=== PATIENT | male | born 1970 | race Two or more races ===

== ENCOUNTER 2024-01-07 15:30 | Inpatient (IN) | payer OTHER ==
[~2024-01-07] VITALS: Ht 170.2 cm; Wt 133.3 kg
[2024-01-07 17:34] LABS: BASOPHILS % (AUTO) 0.8 % (0.0-2.0); EOSINOPHILS % (AUTO) 4.3 % (1.0-6.0); HEMATOCRIT 42.1 % (41-53); HEMOGLOBIN 13.4 g/dL (13.5-17.5); LYMPHOCYTES # (AUTO) 2.4 K/uL (1.0-4.8); LYMPHOCYTES % (AUTO) 19.9 % (22.0-44.0); MEAN CORPUSCULAR HEMOGLOBIN 26.8 pg (26.0-34.0); MEAN CORPUSCULAR HGB CONC 31.7 G/dL (31.0-37.0); MEAN CORPUSCULAR VOLUME 85 fL (80-100); MONOCYTES # (AUTO) 0.8 K/uL (0.1-1.0); MONOCYTES % (AUTO) 6.3 % (2.0-9.0); NEUTROPHILS # (AUTO) 8.3 K/uL (1.8-7.7); NEUTROPHILS % (AUTO) 68.7 % (40.0-70.0); PLATELET COUNT (AUTO) 386 K/uL (150-450); RED BLOOD CELL COUNT(AUTO) 4.98 MIL/uL (4.50-5.90); RED CELL DISTRIBUTION WIDTH 15.4 % (11.5-14.5)
[2024-01-07] MEDS: MethylPREDNISolone SOD SUCC 125 MG/2 ML VIAL IVP ONE (17:45)
[2024-01-07 17:49] LABS: ANION GAP 12 mmol/L (8-16); CALCIUM, TOTAL 8.5 mg/dL (8.8-10.5); CARBON DIOXIDE 25 mmol/L (22-29); CHLORIDE 104 mmol/L (98-107); CREATININE 0.81 mg/dL (0.60-1.30); GLOMERULAR FILTR. RATE CALC > 60 mL/min (>60); GLUCOSE,RANDOM 79 mg/dL (70-110); POTASSIUM 3.8 mmol/L (3.5-5.1); SODIUM SERUM 141 mmol/L (136-145); UREA NITROGEN, BLOOD 10 mg/dL (7-18)
[2024-01-07 17:54] LABS: B-TYPE NATRIURETIC PEPTIDE 16 pg/mL (0-100)
[2024-01-07 17:57] LABS: TROPONIN I-HIGH SENSITIVITY 26 ng/L (<76)
[2024-01-07] MEDS ORDERED: IOHEXOL 350 MG/ML 100 ML VIAL ONE (18:28)
[2024-01-07] MEDS ORDERED: SODIUM CHLORIDE 0.9% 100 ML ONE (18:28)
[2024-01-07] MEDS ORDERED: 0.9% SODIUM CHLORIDE 10 ML SYRINGE IVP ONE (18:28)
[2024-01-07] MEDS: IPRATROPIUM BROMIDE 0.5 MG/2.5 ML NEB SOLUTION NEB ONE (20:35)
[2024-01-07] MEDS: ALBUTEROL SULFATE 2.5 MG/0.5 ML NEB SOLUTION NEB ONE (20:35)
[2024-01-07 20:39] VITALS: PULSE 89; RESP 18; O2SAT 94
[2024-01-07 20:40] VITALS: PULSE 89; RESP 18; O2SAT 94
[2024-01-07] MEDS ORDERED: ALBUTEROL SULFATE 2.5 MG/0.5 ML NEB SOLUTION NEB PRN (22:00)
[2024-01-07] MEDS ORDERED: ACETAMINOPHEN 325 MG TABLET PO PRN (22:00)
[2024-01-07] MEDS ORDERED: MORPHINE SULFATE 2 MG/ML SYRINGE IVP PRN (22:00)
[2024-01-07] MEDS ORDERED: HYDROCODONE/ACETAMINOPHEN 5-325 MG TABLET PO PRN (22:00)
[2024-01-07] MEDS ORDERED: BISACODYL 10 MG RECTAL RECTAL SUPPOSITORY PR PRN (22:00)
[2024-01-07] MEDS ORDERED: ZOLPIDEM TARTRATE 5 MG TABLET PO PRN (22:00)
[2024-01-07] MEDS ORDERED: IPRATROPIUM BROMIDE 0.5 MG/2.5 ML NEB SOLUTION NEB PRN (22:00)
[2024-01-07] MEDS ORDERED: ONDANSETRON HCL 4 MG/2 ML VIAL IVP PRN (22:00)
[2024-01-07] MEDS ORDERED: MAGNESIUM HYDROXIDE SUSPENSION 30 ML UDCUP PO PRN (22:00)
[2024-01-07] MEDS: CefTRIAXone 1 GM/DEXTROSE 50 ML IV SCH (22:15)
[2024-01-07] MEDS ORDERED: ROSU10TA72 PO (22:30)
[2024-01-07] MEDS ORDERED: LEVAHFA IH (22:30)
[2024-01-07] MEDS ORDERED: LISI-892 PO (22:30)
[2024-01-07] MEDS ORDERED: ALBU2.5V39 NEB (22:30)
[2024-01-07] MEDS ORDERED: TIOT185 IH (22:30)
[2024-01-07] MEDS ORDERED: CHOL200059 PO (22:30)
[2024-01-07] MEDS ORDERED: PRED-554 PO (22:30)
[2024-01-07] MEDS ORDERED: LEVO150 PO (22:30)
[2024-01-07] MEDS ORDERED: CAPS60CR3 TP (22:30)
[2024-01-07] MEDS ORDERED: FORM20VI2 NEB (22:30)
[2024-01-07] MEDS ORDERED: CETI-450 PO (22:30)
[2024-01-07] MEDS ORDERED: GABA-1181 PO (22:30)
[2024-01-07] MEDS ORDERED: INSLAN SQ (22:30)
[2024-01-07] MEDS ORDERED: CYAN500T56 PO (22:30)
[2024-01-07] MEDS: AZITHROMYCIN 500 MG/NS 250 ML IV SCH (22:54)
[2024-01-07] MEDS: HEPARIN SODIUM,PORCINE 5,000 UNITS/ML VIAL SQ SCH (23:24)
[2024-01-07] MEDS: MethylPREDNISolone SOD SUCC 125 MG/2 ML VIAL IVP SCH (23:24)
[2024-01-08] VITALS (11 sets, daily range): BP systolic 103–123; BP diastolic 61–76; PULSE 76–92; RESP 18–22; TEMP 97.9–98.1; O2SAT 87–99
[2024-01-08] MEDS: ALBUTEROL SULFATE 2.5 MG/0.5 ML NEB SOLUTION NEB SCH (01:26)
[2024-01-08] MEDS: IPRATROPIUM BROMIDE 0.5 MG/2.5 ML NEB SOLUTION NEB SCH (01:26)
[2024-01-08] MEDS ORDERED: GLUCAGON,HUMAN RECOMBINANT 1 MG VIAL IM PRN (08:00)
[2024-01-08] MEDS: DOCUSATE SODIUM 100 MG CAPSULE PO SCH (08:10)
[2024-01-08] MEDS: BENZONATATE 100 MG CAPSULE PO SCH (08:10)
[2024-01-08] MEDS: PANTOPRAZOLE SODIUM 40 MG DR TABLET PO SCH (08:10)
[2024-01-08 08:12] LABS: COVID AG,FIA SOURCE NASAL SWAB
[2024-01-08] MEDS: INSULIN GLARGINE,HUM.REC.ANLOG 100 UNITS/ML SQ SCH (08:12)
[2024-01-08 08:32] LABS: SARS-COV2 (COVID) ANTIGEN,FIA Negative (Negative)
[2024-01-08] MEDS: GuaiFENesin SR 600 MG ER TABLET PO SCH (11:25)
[2024-01-08] MEDS: INSULIN LISPRO 100 UNITS/ML SQ PRN (11:26)
[2024-01-08 11:46] LABS: BASOPHILS % (AUTO) 0.2 % (0.0-2.0); EOSINOPHILS % (AUTO) 0 % (1.0-6.0); HEMATOCRIT 43.1 % (41-53); HEMOGLOBIN 13.8 g/dL (13.5-17.5); LYMPHOCYTES # (AUTO) 1.1 K/uL (1.0-4.8); LYMPHOCYTES % (AUTO) 4.9 % (22.0-44.0); MEAN CORPUSCULAR HEMOGLOBIN 26.8 pg (26.0-34.0); MEAN CORPUSCULAR HGB CONC 31.9 G/dL (31.0-37.0); MEAN CORPUSCULAR VOLUME 84 fL (80-100); MONOCYTES # (AUTO) 0.4 K/uL (0.1-1.0); MONOCYTES % (AUTO) 1.8 % (2.0-9.0); NEUTROPHILS # (AUTO) 20.1 K/uL (1.8-7.7); PLATELET COUNT (AUTO) 413 K/uL (150-450); RED BLOOD CELL COUNT(AUTO) 5.14 MIL/uL (4.50-5.90); RED CELL DISTRIBUTION WIDTH 15.4 % (11.5-14.5); WHITE BLOOD COUNT (AUTO) 21.6 K/uL (4.5-11.0)
[2024-01-08 11:58] LABS: NEUTROPHILS % (AUTO) 93.1 % (40.0-70.0)
[2024-01-08 12:29] LABS: ANION GAP 13 mmol/L (8-16); CARBON DIOXIDE 23 mmol/L (22-29); CHLORIDE 103 mmol/L (98-107); GLOMERULAR FILTR. RATE CALC > 60 mL/min (>60); GLUCOSE,RANDOM 231 mg/dL (70-110); POTASSIUM 3.9 mmol/L (3.5-5.1); SODIUM SERUM 139 mmol/L (136-145); UREA NITROGEN, BLOOD 9 mg/dL (7-18)
[2024-01-08] MEDS ORDERED: 0.9% SODIUM CHLORIDE 5 ML NEB SOLUTION NEB ONE (14:00)
[2024-01-08 20:26] LABS: GLUCOMETER DEV NAME(LOC) 5S.1C; GLUCOSE,POINT OF CARE 241 MG/DL (70-110)
[2024-01-08 20:26] LABS: GLUCOMETER DEV NAME(LOC) 5S.1C; GLUCOSE,POINT OF CARE 208 MG/DL (70-110)
[2024-01-09] VITALS (12 sets, daily range): BP systolic 111–130; BP diastolic 65–76; PULSE 59–93; RESP 18–20; TEMP 97.9–98.3; O2SAT 91–97
[2024-01-09 00:55] LABS: GLUCOMETER DEV NAME(LOC) 5S.2D; GLUCOSE,POINT OF CARE 290 MG/DL (70-110)
[2024-01-09 06:25] LABS: GLUCOMETER DEV NAME(LOC) 5S.2D; GLUCOSE,POINT OF CARE 217 MG/DL (70-110)
[2024-01-09 07:18] LABS: ANION GAP 13 mmol/L (8-16); CALCIUM, TOTAL 8.6 mg/dL (8.8-10.5); CARBON DIOXIDE 21 mmol/L (22-29); CHLORIDE 105 mmol/L (98-107); CREATININE 0.95 mg/dL (0.60-1.30); GLOMERULAR FILTR. RATE CALC > 60 mL/min (>60); GLUCOSE,RANDOM 217 mg/dL (70-110); POTASSIUM 3.8 mmol/L (3.5-5.1); SODIUM SERUM 139 mmol/L (136-145); UREA NITROGEN, BLOOD 11 mg/dL (7-18)
[2024-01-09 07:45] LABS: BASOPHILS % (AUTO) 0.6 % (0.0-2.0); EOSINOPHILS % (AUTO) 0 % (1.0-6.0); HEMATOCRIT 42.4 % (41-53); HEMOGLOBIN 13.4 g/dL (13.5-17.5); LYMPHOCYTES # (AUTO) 1.2 K/uL (1.0-4.8); MEAN CORPUSCULAR HEMOGLOBIN 26.5 pg (26.0-34.0); MEAN CORPUSCULAR HGB CONC 31.6 G/dL (31.0-37.0); MEAN CORPUSCULAR VOLUME 84 fL (80-100); MONOCYTES # (AUTO) 0.6 K/uL (0.1-1.0); MONOCYTES % (AUTO) 2.2 % (2.0-9.0); NEUTROPHILS # (AUTO) 27.6 K/uL (1.8-7.7); PLATELET COUNT (AUTO) 413 K/uL (150-450); RED BLOOD CELL COUNT(AUTO) 5.06 MIL/uL (4.50-5.90); RED CELL DISTRIBUTION WIDTH 15.5 % (11.5-14.5); WHITE BLOOD COUNT (AUTO) 29.7 K/uL (4.5-11.0)
[2024-01-09 08:00] LABS: NEUTROPHILS % (AUTO) 93.2 % (40.0-70.0)
[2024-01-09] MEDS: MethylPREDNISolone SOD SUCC 125 MG/2 ML VIAL IVP SCH (12:00)
[2024-01-09 14:16] LABS: GLUCOMETER DEV NAME(LOC) 5S.2D; GLUCOSE,POINT OF CARE 196 MG/DL (70-110)
[2024-01-09 14:16] LABS: GLUCOMETER DEV NAME(LOC) 5S.2D; GLUCOSE,POINT OF CARE 233 MG/DL (70-110)
[2024-01-09 19:45] LABS: GLUCOMETER DEV NAME(LOC) 5S.2D; GLUCOSE,POINT OF CARE 294 MG/DL (70-110)
[2024-01-10] VITALS (9 sets, daily range): BP systolic 112–142; BP diastolic 60–93; PULSE 59–100; RESP 16–21; TEMP 97.7–98.3; O2SAT 92–99
[2024-01-10 06:41] LABS: GLUCOMETER DEV NAME(LOC) 5S.1C; GLUCOSE,POINT OF CARE 254 MG/DL (70-110)
[2024-01-10 06:43] LABS: ANION GAP 8 mmol/L (8-16); CALCIUM, TOTAL 8.3 mg/dL (8.8-10.5); CARBON DIOXIDE 24 mmol/L (22-29); CHLORIDE 106 mmol/L (98-107); CREATININE 0.78 mg/dL (0.60-1.30); GLOMERULAR FILTR. RATE CALC > 60 mL/min (>60); GLUCOSE,RANDOM 223 mg/dL (70-110); POTASSIUM 3.9 mmol/L (3.5-5.1); SODIUM SERUM 138 mmol/L (136-145); UREA NITROGEN, BLOOD 11 mg/dL (7-18)
[2024-01-10 07:24] LABS: BASOPHILS % (AUTO) 0.2 % (0.0-2.0); EOSINOPHILS % (AUTO) 0 % (1.0-6.0); HEMATOCRIT 42.4 % (41-53); HEMOGLOBIN 13.4 g/dL (13.5-17.5); LYMPHOCYTES # (AUTO) 1.3 K/uL (1.0-4.8); LYMPHOCYTES % (AUTO) 6.1 % (22.0-44.0); MEAN CORPUSCULAR HEMOGLOBIN 26.3 pg (26.0-34.0); MEAN CORPUSCULAR HGB CONC 31.7 G/dL (31.0-37.0); MEAN CORPUSCULAR VOLUME 83 fL (80-100); MONOCYTES # (AUTO) 0.6 K/uL (0.1-1.0); MONOCYTES % (AUTO) 2.8 % (2.0-9.0); NEUTROPHILS # (AUTO) 20.1 K/uL (1.8-7.7); PLATELET COUNT (AUTO) 371 K/uL (150-450); RED BLOOD CELL COUNT(AUTO) 5.11 MIL/uL (4.50-5.90); RED CELL DISTRIBUTION WIDTH 15.6 % (11.5-14.5); WHITE BLOOD COUNT (AUTO) 22.1 K/uL (4.5-11.0)
[2024-01-10 07:29] LABS: NEUTROPHILS % (AUTO) 90.9 % (40.0-70.0)
[2024-01-10 09:41] LABS: GLUCOMETER DEV NAME(LOC) 5S.1C; GLUCOSE,POINT OF CARE 240 MG/DL (70-110)
[2024-01-10 12:00] LABS: GLUCOMETER DEV NAME(LOC) 5S.2D; GLUCOSE,POINT OF CARE 202 MG/DL (70-110)
[2024-01-10] MEDS: CHLORHEXIDINE GLUCONATE 4% 118 ML TOPICAL LIQUID TP SCH (12:33)
[2024-01-10] MEDS: MUPIROCIN CALCIUM 2% 22 GM OINTMENT TP SCH (12:33)
[2024-01-10] MEDS ORDERED: ALBU2.5V39 NEB (15:44)
[2024-01-10] MEDS ORDERED: BENZ100C68 PO (15:45)
[2024-01-10] MEDS ORDERED: GUAIF600 PO (15:45)
[2024-01-10] MEDS ORDERED: PANT-31 PO (15:48)
[2024-01-10] MEDS ORDERED: INSU100V SQ (15:51)
[2024-01-10] MEDS ORDERED: AMOX1TAB15 PO (16:20)
[2024-01-10] MEDS ORDERED: FLUT1BLS10 IH (16:21)
[2024-01-10] MEDS ORDERED: PRED-729 PO (16:24)
[2024-01-10] MEDS ORDERED: PRED-549 PO (16:24)
[2024-01-10 17:00] LABS: GLUCOMETER DEV NAME(LOC) 5S.1C; GLUCOSE,POINT OF CARE 230 MG/DL (70-110)
[2024-01-10 17:45] LABS: GLUCOMETER DEV NAME(LOC) 5S.2D; GLUCOSE,POINT OF CARE 235 MG/DL (70-110)
== END 2024-01-10 17:35 | DRG 189 ==
LOC: EMS 15:30 → EDH 22:01 → 5S 01-08 10:05
PROVIDERS: ADMIT Internal Medicine; ATTEND Internal Medicine
DX: J96.21 Acute and chronic respiratory failure with hypoxia (principal); L03.115 Cellulitis of right lower limb; J44.1 Chronic obstructive pulmonary disease with (acute) exacerbation; E66.2 Morbid (severe) obesity with alveolar hypoventilation; Z68.42 Body mass index [BMI] 45.0-49.9, adult; R65.10 Systemic inflammatory response syndrome (SIRS) of non-infectious origin without acute organ dysfunction; E78.00 Pure hypercholesterolemia, unspecified; E03.9 Hypothyroidism, unspecified; I10 Essential (primary) hypertension; E11.9 Type 2 diabetes mellitus without complications; F10.20 Alcohol dependence, uncomplicated; Z20.822 Contact with and (suspected) exposure to COVID-19; G89.29 Other chronic pain; S20.212A Contusion of left front wall of thorax, initial encounter; X58.XXXA Exposure to other specified factors, initial encounter; Y93.89 Activity, other specified; Y92.89 Other specified places as the place of occurrence of the external cause; Z88.6 Allergy status to analgesic agent; Z91.013 Allergy to seafood; Y99.8 Other external cause status
CPT/HCPCS: 71045; 74174; 74175; 80048; 82962; 83880; 84484; 85025; 85379; 87340; 93005; 94640; 99285; G0378; J0456; J0696; J1644; J1815; J2919; J7050; 36415-L1; 36415-TC; J7613

== ENCOUNTER 2024-02-26 18:30 | Inpatient (IN) | payer OTHER ==
[~2024-02-26] VITALS: Ht 170.2 cm; Wt 135.5 kg
[~2024-02-26 18:30] MED LIST: ALBU2.5V39 NEB; AMOX1TAB15 PO; BENZ100C68 PO; CAPS60CR3 TP; CETI-450 PO; CHOL200059 PO; CYAN500T56 PO; FLUT1BLS10 IH; FORM20VI2 NEB; GABA-1181 PO; GUAIF600 PO; INSLAN SQ; INSU100V SQ; LEVO150 PO; PANT-31 PO; PRED-549 PO; PRED-554 PO; PRED-729 PO; ROSU10TA72 PO; TIOT185 IH
[2024-02-26] MEDS ORDERED: APIX5TAB PO (20:14)
[2024-02-26] MEDS ORDERED: INSREG SQ (20:14)
[2024-02-26] MEDS ORDERED: TRAM50TA5 PO (20:14)
[2024-02-26] MEDS ORDERED: DOXY-354 PO (20:14)
[2024-02-26] MEDS ORDERED: FAMO20 PO (20:14)
[2024-02-26] MEDS ORDERED: LISI-660 PO (20:14)
[2024-02-26 20:39] LABS: BASOPHILS % (AUTO) 0.4 % (0.0-2.0); EOSINOPHILS % (AUTO) 0.1 % (1.0-6.0); HEMATOCRIT 42.5 % (41-53); HEMOGLOBIN 13.4 g/dL (13.5-17.5); LYMPHOCYTES # (AUTO) 2.7 K/uL (1.0-4.8); MEAN CORPUSCULAR HEMOGLOBIN 26.3 pg (26.0-34.0); MEAN CORPUSCULAR HGB CONC 31.5 G/dL (31.0-37.0); MEAN CORPUSCULAR VOLUME 83 fL (80-100); MONOCYTES # (AUTO) 1.5 K/uL (0.1-1.0); MONOCYTES % (AUTO) 7.2 % (2.0-9.0); NEUTROPHILS # (AUTO) 16.4 K/uL (1.8-7.7); NEUTROPHILS % (AUTO) 79.3 % (40.0-70.0); PLATELET COUNT (AUTO) 378 K/uL (150-450); RED BLOOD CELL COUNT(AUTO) 5.11 MIL/uL (4.50-5.90); RED CELL DISTRIBUTION WIDTH 15.7 % (11.5-14.5); WHITE BLOOD COUNT (AUTO) 20.7 K/uL (4.5-11.0)
[2024-02-26 20:40] LABS: COVID AG,FIA SOURCE NASAL SWAB
[2024-02-26 20:50] LABS: ANION GAP 10 mmol/L (8-16); CALCIUM, TOTAL 9.1 mg/dL (8.8-10.5); CARBON DIOXIDE 25 mmol/L (22-29); CHLORIDE 102 mmol/L (98-107); CREATININE 0.68 mg/dL (0.60-1.30); GLOMERULAR FILTR. RATE CALC > 60 mL/min (>60); GLUCOSE,RANDOM 124 mg/dL (70-110); SODIUM SERUM 137 mmol/L (136-145); UREA NITROGEN, BLOOD 15 mg/dL (7-18)
[2024-02-26 20:56] LABS: INR 1.1 (0.9-1.1); PROTHROMBIN TIME 11.5 SEC (9.4-11.6)
[2024-02-26 21:00] LABS: SARS-COV2 (COVID) ANTIGEN,FIA Negative (Negative)
[2024-02-26 21:02] LABS: B-TYPE NATRIURETIC PEPTIDE 15 pg/mL (0-100)
[2024-02-26 21:15] LABS: ALANINE AMINOTRANSFERASE 29 U/L (12-78); ALBUMIN 3.4 g/dL (3.4-5.0); ALKALINE PHOSPHATASE 58 U/L (46-116); ASPARTATE AMINOTRANSFERASE 13 U/L (15-37); BILIRUBIN,TOTAL 0.3 mg/dL (0.1-1.0); CREATINE KINASE, TOTAL ONLY 87 U/L (39-308); TOTAL PROTEIN, SERUM 7.5 g/dL (6.4-8.2)
[2024-02-26 21:16] LABS: TROPONIN I-HIGH SENSITIVITY 10 ng/L (<76)
[2024-02-26] MEDS ORDERED: ACETAMINOPHEN 325 MG TABLET PO PRN (22:30)
[2024-02-26] MEDS ORDERED: ONDANSETRON HCL 4 MG/2 ML VIAL IVP PRN (22:30)
[2024-02-26] MEDS: MethylPREDNISolone SOD SUCC 125 MG/2 ML VIAL IVP ONE (22:33)
[2024-02-26] MEDS: ALBUTEROL SULFATE 2.5 MG/0.5 ML NEB SOLUTION NEB ONE (22:38)
[2024-02-26] MEDS: IPRATROPIUM BROMIDE 0.5 MG/2.5 ML NEB SOLUTION NEB ONE (22:38)
[2024-02-26 22:40] VITALS: PULSE 63; RESP 18; O2SAT 96
[2024-02-26] MEDS ORDERED: ALBUTEROL SULFATE 2.5 MG/0.5 ML NEB SOLUTION NEB PRN (22:45)
[2024-02-26] MEDS ORDERED: DEXTROSE 50%-WATER 25 GM/50 ML SYRINGE IVP PRN (22:45)
[2024-02-26] MEDS ORDERED: IOHEXOL 350 MG/ML 100 ML VIAL ONE (22:49)
[2024-02-26] MEDS ORDERED: SODIUM CHLORIDE 0.9% 100 ML ONE (22:49)
[2024-02-26 22:55] VITALS: PULSE 60; RESP 18; O2SAT 100
[2024-02-27 02:00] VITALS: BP 115/65; PULSE 53; RESP 18; TEMP 98; O2SAT 97
[2024-02-27 04:00] VITALS: BP 109/62; PULSE 57; RESP 18; TEMP 97.9; O2SAT 97
[2024-02-27 06:28] LABS: BASOPHILS % (AUTO) 0.1 % (0.0-2.0); EOSINOPHILS % (AUTO) 0 % (1.0-6.0); HEMATOCRIT 42.7 % (41-53); HEMOGLOBIN 13.6 g/dL (13.5-17.5); LYMPHOCYTES # (AUTO) 1.1 K/uL (1.0-4.8); LYMPHOCYTES % (AUTO) 7.8 % (22.0-44.0); MEAN CORPUSCULAR HEMOGLOBIN 26.7 pg (26.0-34.0); MEAN CORPUSCULAR HGB CONC 31.8 G/dL (31.0-37.0); MEAN CORPUSCULAR VOLUME 84 fL (80-100); MONOCYTES # (AUTO) 0.2 K/uL (0.1-1.0); MONOCYTES % (AUTO) 1.2 % (2.0-9.0); NEUTROPHILS # (AUTO) 13.1 K/uL (1.8-7.7); PLATELET COUNT (AUTO) 364 K/uL (150-450); RED BLOOD CELL COUNT(AUTO) 5.08 MIL/uL (4.50-5.90); RED CELL DISTRIBUTION WIDTH 15.8 % (11.5-14.5); WHITE BLOOD COUNT (AUTO) 14.4 K/uL (4.5-11.0)
[2024-02-27 06:31] LABS: GLUCOMETER DEV NAME(LOC) 5N.1D; GLUCOSE,POINT OF CARE 209 MG/DL (70-110)
[2024-02-27 06:44] LABS: ANION GAP 11 mmol/L (8-16); CARBON DIOXIDE 24 mmol/L (22-29); CHLORIDE 102 mmol/L (98-107); CREATININE 0.75 mg/dL (0.60-1.30); GLOMERULAR FILTR. RATE CALC > 60 mL/min (>60); GLUCOSE,RANDOM 213 mg/dL (70-110); POTASSIUM 4.7 mmol/L (3.5-5.1); SODIUM SERUM 136 mmol/L (136-145); UREA NITROGEN, BLOOD 14 mg/dL (7-18)
[2024-02-27] MEDS: INSULIN LISPRO 100 UNITS/ML SQ PRN (06:46)
[2024-02-27 06:57] LABS: NEUTROPHILS % (AUTO) 90.9 % (40.0-70.0)
[2024-02-27] MEDS ORDERED: PANTOPRAZOLE SODIUM 40 MG DR TABLET PO SCH (09:00)
[2024-02-27 09:15] VITALS: BP 134/79; PULSE 68; RESP 18; TEMP 97.6; O2SAT 97
[2024-02-27] MEDS: CHOLECALCIFEROL (VIT D3) 2,000 UNITS [50 MCG] TABLET PO SCH (09:17)
[2024-02-27] MEDS: DOCUSATE SODIUM 100 MG CAPSULE PO SCH (09:17)
[2024-02-27] MEDS: CYANOCOBALAMIN 500 MCG TABLET PO SCH (09:17)
[2024-02-27] MEDS: GABAPENTIN 300 MG CAPSULE PO SCH (09:17)
[2024-02-27] MEDS: FAMOTIDINE 20 MG TABLET PO SCH (09:18)
[2024-02-27] MEDS: PredniSONE 20 MG TABLET PO SCH (09:18)
[2024-02-27] MEDS: ROSUVASTATIN CALCIUM 10 MG TABLET PO SCH (09:18)
[2024-02-27] MEDS: LISINOPRIL 5 MG TABLET PO SCH (09:18)
[2024-02-27] MEDS: INSULIN GLARGINE,HUM.REC.ANLOG 100 UNITS/ML SQ SCH (09:20)
[2024-02-27] MEDS: TraMADol HCL 50 MG TABLET PO PRN (09:34)
[2024-02-27] MEDS: TIOTROPIUM BROMIDE 18 MCG/INH HANDIHALER [5] IH SCH (09:35)
[2024-02-27] MEDS: ENOXAPARIN SODIUM 80 MG/0.8 ML PF SYRINGE SQ SCH (09:35)
[2024-02-27 09:41] LABS: GLUCOMETER DEV NAME(LOC) 5N.1D; GLUCOSE,POINT OF CARE 238 MG/DL (70-110)
[2024-02-27 12:36] LABS: GLUCOMETER DEV NAME(LOC) 5N.1D; GLUCOSE,POINT OF CARE 174 MG/DL (70-110)
[2024-02-27 13:00] VITALS: BP 125/79; PULSE 65; RESP 18; TEMP 97.4; O2SAT 96
[2024-02-27 16:26] VITALS: BP 112/81; PULSE 64; RESP 18; TEMP 98; O2SAT 96
[2024-02-27 19:42] VITALS: BP 114/66; PULSE 81; RESP 18; TEMP 97.6; O2SAT 95
[2024-02-27] MEDS ORDERED: DiphenhydrAMINE HCL 50 MG/ML VIAL ONE (20:01)
[2024-02-27] MEDS: DiphenhydrAMINE HCL 50 MG/ML VIAL IVP ONE (20:03)
[2024-02-27] MEDS: APIXABAN 5 MG TABLET PO SCH (21:03)
[2024-02-28 04:46] LABS: GLUCOMETER DEV NAME(LOC) 5S.2D; GLUCOSE,POINT OF CARE 131 MG/DL (70-110)
[2024-02-28 04:46] LABS: GLUCOMETER DEV NAME(LOC) 6S.2; GLUCOSE,POINT OF CARE 87 MG/DL (70-110)
[2024-02-28 05:10] VITALS: BP 97/52; PULSE 62; RESP 18; O2SAT 99
[2024-02-28 06:56] LABS: GLUCOMETER DEV NAME(LOC) 5S.2D; GLUCOSE,POINT OF CARE 172 MG/DL (70-110)
[2024-02-28 08:17] VITALS: BP 100/54; PULSE 64; RESP 19; TEMP 98.1; O2SAT 95
[2024-02-28 15:01] LABS: GLUCOMETER DEV NAME(LOC) 5S.2D; GLUCOSE,POINT OF CARE 109 MG/DL (70-110)
[2024-02-28 17:51] LABS: GLUCOMETER DEV NAME(LOC) 5S.2D; GLUCOSE,POINT OF CARE 153 MG/DL (70-110)
[2024-02-28 20:05] VITALS: BP 117/62; PULSE 66; RESP 18; TEMP 97.9; O2SAT 94
[2024-02-29 03:46] LABS: GLUCOMETER DEV NAME(LOC) 5S.2D; GLUCOSE,POINT OF CARE 164 MG/DL (70-110)
[2024-02-29 05:14] VITALS: BP 114/67; PULSE 64; RESP 18; TEMP 97.8; O2SAT 95
[2024-02-29 08:18] VITALS: BP 106/59; PULSE 71; RESP 19; TEMP 98; O2SAT 99
[2024-02-29 20:36] LABS: GLUCOMETER DEV NAME(LOC) 6S.2; GLUCOSE,POINT OF CARE 146 MG/DL (70-110)
[2024-02-29 21:05] LABS: GLUCOMETER DEV NAME(LOC) 5S.2D; GLUCOSE,POINT OF CARE 81 MG/DL (70-110)
[2024-02-29 21:05] LABS: GLUCOMETER DEV NAME(LOC) 5S.2D; GLUCOSE,POINT OF CARE 132 MG/DL (70-110)
== END 2024-02-29 19:16 | DRG 189 ==
LOC: EMS 18:31 → EDH 22:31 → 5N 02-27 02:18 → 6S 02-27 16:30
PROVIDERS: ADMIT Internal Medicine; ATTEND Internal Medicine
DX: J96.01 Acute respiratory failure with hypoxia (principal); J44.1 Chronic obstructive pulmonary disease with (acute) exacerbation; R65.10 Systemic inflammatory response syndrome (SIRS) of non-infectious origin without acute organ dysfunction; Z68.42 Body mass index [BMI] 45.0-49.9, adult; Z20.822 Contact with and (suspected) exposure to COVID-19; I70.0 Atherosclerosis of aorta; I50.9 Heart failure, unspecified; I11.0 Hypertensive heart disease with heart failure; E03.9 Hypothyroidism, unspecified; E66.01 Morbid (severe) obesity due to excess calories; E11.9 Type 2 diabetes mellitus without complications; E78.00 Pure hypercholesterolemia, unspecified; Z91.013 Allergy to seafood; Z86.711 Personal history of pulmonary embolism; Z88.6 Allergy status to analgesic agent; Z79.01 Long term (current) use of anticoagulants; Z88.8 Allergy status to other drugs, medicaments and biological substances
CPT/HCPCS: 71045; 71275; 80048; 80053; 82550; 82962; 83735; 83880; 84145; 84484; 85025; 85610; 85730; 93005; 93306; 94640; 99291; G0378; J1200; J1650; J1815; J2919; J7050; 36415-L1; 36415-TC; J7613

== ENCOUNTER 2024-03-02 16:26 | Inpatient (IN) | payer OTHER ==
[~2024-03-02] VITALS: Ht 170.2 cm; Wt 140.0 kg
[~2024-03-02 16:26] MED LIST changes: -AMOX1TAB15 PO; +APIX5TAB PO; -BENZ100C68 PO; -CAPS60CR3 TP; -CETI-450 PO; +DOXY-354 PO; +FAMO20 PO; -FORM20VI2 NEB; -GUAIF600 PO; +INSREG SQ; -INSU100V SQ; -LEVO150 PO; +LISI-660 PO; -PRED-549 PO; -PRED-729 PO; +TRAM50TA5 PO
[2024-03-02 18:47] LABS: HEMATOCRIT 43.4 % (41-53); HEMOGLOBIN 13.7 g/dL (13.5-17.5); MEAN CORPUSCULAR HEMOGLOBIN 26.4 pg (26.0-34.0); MEAN CORPUSCULAR HGB CONC 31.5 G/dL (31.0-37.0); MEAN CORPUSCULAR VOLUME 84 fL (80-100); PLATELET COUNT (AUTO) 356 K/uL (150-450); RED BLOOD CELL COUNT(AUTO) 5.19 MIL/uL (4.50-5.90); RED CELL DISTRIBUTION WIDTH 16.1 % (11.5-14.5); WHITE BLOOD COUNT (AUTO) 15.6 K/uL (4.5-11.0)
[2024-03-02 18:56] LABS: ANION GAP 7 mmol/L (8-16); BAND NEUTROPHILS % (MANUAL) 2 % (0-5); BASOPHILS % (MANUAL) 1 % (0-2); CARBON DIOXIDE 30 mmol/L (22-29); CHLORIDE 99 mmol/L (98-107); CREATININE 0.85 mg/dL (0.60-1.30); EOSINOPHILS % (MANUAL) 3 % (1-6); GLOMERULAR FILTR. RATE CALC > 60 mL/min (>60); GLUCOSE,RANDOM 87 mg/dL (70-110); LYMPHOCYTES % (MANUAL) 26 % (22-44); MONOCYTES % (MANUAL) 8 % (2-9); POTASSIUM 3.6 mmol/L (3.5-5.1); SEGMENTED NEUTROPHILS % 60 % (40-70); SODIUM SERUM 136 mmol/L (136-145); TOTAL CELLS COUNTED 100; UREA NITROGEN, BLOOD 13 mg/dL (7-18)
[2024-03-02 18:59] LABS: PROTHROMBIN TIME 10.9 SEC (9.4-11.6)
[2024-03-02 19:08] LABS: RBC MORPHOLOGY COMMENT NORMAL RBC MORPH
[2024-03-02] MEDS ORDERED: IOHEXOL 350 MG/ML 100 ML VIAL ONE (21:45)
[2024-03-02] MEDS ORDERED: SODIUM CHLORIDE 0.9% 100 ML ONE (21:45)
[2024-03-02 22:13] LABS: TROPONIN I-HIGH SENSITIVITY 9 ng/L (<76)
[2024-03-02] MEDS: MethylPREDNISolone SOD SUCC 125 MG/2 ML VIAL IVP ONE (22:51)
[2024-03-02] MEDS ORDERED: ACETAMINOPHEN 325 MG TABLET PO PRN (23:00)
[2024-03-02] MEDS ORDERED: ALBUTEROL SULFATE 2.5 MG/0.5 ML NEB SOLUTION NEB PRN (23:00)
[2024-03-02] MEDS ORDERED: DEXTROSE 50%-WATER 25 GM/50 ML SYRINGE IVP PRN (23:00)
[2024-03-02 23:15] VITALS: PULSE 68; RESP 18; O2SAT 98
[2024-03-02] MEDS: IPRATROPIUM BROMIDE 0.5 MG/2.5 ML NEB SOLUTION NEB ONE (23:21)
[2024-03-02] MEDS: ALBUTEROL SULFATE 2.5 MG/0.5 ML NEB SOLUTION NEB ONE (23:21)
[2024-03-02 23:23] VITALS: PULSE 68; RESP 18; O2SAT 98
[2024-03-02 23:27] VITALS: PULSE 70; RESP 18; O2SAT 98
[2024-03-02] MEDS: APIXABAN 5 MG TABLET PO SCH (23:47)
[2024-03-03 04:00] VITALS: BP 118/68; PULSE 84; RESP 19; TEMP 98.2; O2SAT 97
[2024-03-03] MEDS: MethylPREDNISolone SOD SUCC 125 MG/2 ML VIAL IVP SCH (06:00)
[2024-03-03] MEDS: INSULIN LISPRO 100 UNITS/ML SQ PRN (06:16)
[2024-03-03] MEDS: FAMOTIDINE 20 MG TABLET PO SCH (08:46)
[2024-03-03] MEDS: DOCUSATE SODIUM 100 MG CAPSULE PO SCH (09:00)
[2024-03-03 11:37] VITALS: BP 128/72; PULSE 83; RESP 18; TEMP 97.6; O2SAT 95
[2024-03-03 19:35] VITALS: BP 146/88; PULSE 73; RESP 18; TEMP 98.4; O2SAT 94
[2024-03-03 22:26] LABS: APPEARANCE,URINE CLEAR (CLEAR); BILIRUBIN,URINE NEGATIVE (NEGATIVE); COLOR,URINE COLORLESS (YELLOW); GLUCOSE, URINE (UA) 300-500 mg/dL (NEGATIVE); KETONES,URINE NEGATIVE (NEGATIVE); LEUKOCYTE ESTERASE ,URINE NEGATIVE (NEGATIVE); NITRATE,URINE NEGATIVE (NEGATIVE); OCCULT BLOOD,URINE NEGATIVE (NEGATIVE); PH,URINE 6.5 (5.0-8.0); PROTEIN,URINE NEGATIVE (NEGATIVE); SPECIFIC GRAVITIY, URINE 1.009 (1.003-1.030); UROBILINOGEN,URINE <=1.0 mg/dL (<=1.0)
[2024-03-03 22:34] LABS: BACTERIA,URINE Few /HPF (None Seen); RBC,URINE 0-2 /HPF (0-2); SQUAMOUS EPITHELIAL CELL,UR Rare /LPF (None Seen); WBC,URINE None Seen /HPF (0-5)
[2024-03-04 00:33] VITALS: BP 125/65; PULSE 76; RESP 19; TEMP 97.8; O2SAT 95
[2024-03-04 04:00] VITALS: BP 120/66; PULSE 65; RESP 18; TEMP 97.7; O2SAT 97
[2024-03-04 08:00] VITALS: BP 129/75; PULSE 65; RESP 18; TEMP 97.7; O2SAT 97
[2024-03-04] MEDS: KETOROLAC TROMETHAMINE 15 MG/ML VIAL IVP ONE (09:40)
[2024-03-04 12:08] VITALS: BP 134/82; PULSE 70; RESP 17; TEMP 98; O2SAT 97
[2024-03-04 16:00] VITALS: BP 130/74; PULSE 66; RESP 18; TEMP 97.8; O2SAT 98
[2024-03-04] MEDS: TraMADol HCL 50 MG TABLET PO PRN (17:04)
[2024-03-04] MEDS: MethylPREDNISolone SOD SUCC 40 MG/ML VIAL IVP SCH (17:10)
[2024-03-04 20:00] VITALS: BP 129/104; PULSE 57; RESP 18; TEMP 97.8; O2SAT 94
[2024-03-04] MEDS: APIXABAN 5 MG TABLET PO SCH (21:36)
[2024-03-05 00:56] VITALS: BP 122/80; PULSE 54; RESP 18; TEMP 98.1; O2SAT 96
[2024-03-05 04:00] VITALS: BP 137/77; PULSE 55; RESP 18; TEMP 97.9; O2SAT 95
[2024-03-05 08:00] VITALS: BP 112/81; PULSE 56; RESP 18; TEMP 97.9; O2SAT 97
[2024-03-05 09:43] VITALS: BP 134/89; PULSE 61; RESP 18
[2024-03-05 11:36] LABS: GLUCOMETER DEV NAME(LOC) 5N.2C; GLUCOSE,POINT OF CARE 203 MG/DL (70-110)
[2024-03-05 11:37] LABS: GLUCOMETER DEV NAME(LOC) 5N.2C; GLUCOSE,POINT OF CARE 217 MG/DL (70-110)
[2024-03-05 11:37] LABS: GLUCOMETER DEV NAME(LOC) 5N.2C; GLUCOSE,POINT OF CARE 207 MG/DL (70-110)
[2024-03-05 11:37] LABS: GLUCOMETER DEV NAME(LOC) 5N.2C; GLUCOSE,POINT OF CARE 301 MG/DL (70-110)
[2024-03-05 11:37] LABS: GLUCOMETER DEV NAME(LOC) 5N.2C; GLUCOSE,POINT OF CARE 227 MG/DL (70-110)
[2024-03-05 11:37] LABS: GLUCOMETER DEV NAME(LOC) 5N.2C; GLUCOSE,POINT OF CARE 189 MG/DL (70-110)
[2024-03-05 11:37] LABS: GLUCOMETER DEV NAME(LOC) 5N.2C; GLUCOSE,POINT OF CARE 187 MG/DL (70-110)
[2024-03-05] MEDS: *CLINICAL-LEVOFLOXACIN IVPB DOSING CLINICAL ONE (11:58)
[2024-03-05] MEDS ORDERED: LEVOFLOXACIN 500 MG/D5% WATER 100 ML IV SCH (13:00)
[2024-03-05] MEDS: PredniSONE 20 MG TABLET PO SCH (16:56)
[2024-03-05] MEDS: DiphenhydrAMINE HCL 50 MG/ML VIAL IVP ONE (18:28)
[2024-03-05 20:00] VITALS: BP 138/70; PULSE 56; RESP 18; TEMP 98; O2SAT 97
[2024-03-06 02:21] LABS: GLUCOMETER DEV NAME(LOC) 6S.2; GLUCOSE,POINT OF CARE 176 MG/DL (70-110)
[2024-03-06 02:21] LABS: GLUCOMETER DEV NAME(LOC) 6S.2; GLUCOSE,POINT OF CARE 278 MG/DL (70-110)
[2024-03-06 04:00] VITALS: BP 107/76; PULSE 54; RESP 20; TEMP 97.6; O2SAT 95
[2024-03-06 08:00] LABS: GLUCOMETER DEV NAME(LOC) 6S.2; GLUCOSE,POINT OF CARE 150 MG/DL (70-110)
[2024-03-06 09:27] VITALS: BP 145/82; PULSE 61; RESP 18; TEMP 97.5; O2SAT 98
[2024-03-06 19:36] VITALS: BP 124/94; PULSE 61; RESP 20; TEMP 97.9; O2SAT 96
[2024-03-07 16:50] LABS: GLUCOMETER DEV NAME(LOC) 6S.2; GLUCOSE,POINT OF CARE 242 MG/DL (70-110)
[2024-03-07 16:50] LABS: GLUCOMETER DEV NAME(LOC) 6S.2; GLUCOSE,POINT OF CARE 224 MG/DL (70-110)
[2024-03-07 16:50] LABS: GLUCOMETER DEV NAME(LOC) 6S.2; GLUCOSE,POINT OF CARE 127 MG/DL (70-110)
[2024-03-08 12:31] LABS: GLUCOMETER DEV NAME(LOC) 5N.1D; GLUCOSE,POINT OF CARE 305 MG/DL (70-110)
[2024-03-08 12:31] LABS: GLUCOMETER DEV NAME(LOC) 5N.1D; GLUCOSE,POINT OF CARE 182 MG/DL (70-110)
[2024-03-08 12:31] LABS: GLUCOMETER DEV NAME(LOC) 5N.1D; GLUCOSE,POINT OF CARE 160 MG/DL (70-110)
== END 2024-03-06 23:27 | DRG 175 ==
LOC: EMS 16:26 → EDH 23:51 → 5S 03-03 01:09 → 6S 03-05 12:45
PROVIDERS: ADMIT Internal Medicine; ATTEND Internal Medicine
PROC: 05H933Z Insertion of Infusion Device into Right Brachial Vein, Percutaneous Approach (ICD-10-PCS; principal; 2024-03-03)
PROC: B54MZZA Ultrasonography of Right Upper Extremity Veins, Guidance (ICD-10-PCS; 2024-03-03)
DX: I26.93 Single subsegmental thrombotic pulmonary embolism without acute cor pulmonale (principal); J96.01 Acute respiratory failure with hypoxia; J44.1 Chronic obstructive pulmonary disease with (acute) exacerbation; E44.0 Moderate protein-calorie malnutrition; E66.2 Morbid (severe) obesity with alveolar hypoventilation; Z68.42 Body mass index [BMI] 45.0-49.9, adult; Z79.01 Long term (current) use of anticoagulants; B19.20 Unspecified viral hepatitis C without hepatic coma; E11.9 Type 2 diabetes mellitus without complications; E03.9 Hypothyroidism, unspecified; G89.29 Other chronic pain; F10.20 Alcohol dependence, uncomplicated; R07.81 Pleurodynia; Y90.9 Presence of alcohol in blood, level not specified; E78.00 Pure hypercholesterolemia, unspecified; I10 Essential (primary) hypertension; Z79.4 Long term (current) use of insulin; Z86.711 Personal history of pulmonary embolism; Z88.6 Allergy status to analgesic agent
CPT/HCPCS: 36245; 36569; 71045; 71275; 76937; 80048; 81001; 81003; 82962; 83880; 84484; 85007; 85027; 85610; 85730; 87081; 93970; 94060; 94640; 99285; G0378; J1200; J1885; J1956; J2919; J7050; 36415-L1; 36415-TC; J7613

== ENCOUNTER 2024-05-22 10:15 | Inpatient (IN) | payer OTHER ==
[~2024-05-22] VITALS: Ht 170.2 cm; Wt 126.7 kg
[~2024-05-22 10:15] MED LIST changes: -DOXY-354 PO; -FAMO20 PO; -LISI-660 PO
[2024-05-22] MEDS: 0.9% SODIUM CHLORIDE 10 ML SYRINGE IVP PRN (10:57)
[2024-05-22] MEDS: CefTRIAXone 1 GM/DEXTROSE 50 ML IV ONE (11:03)
[2024-05-22] MEDS: MethylPREDNISolone SOD SUCC 125 MG/2 ML VIAL IVP ONE (11:04)
[2024-05-22] MEDS: SODIUM CHLORIDE 0.9% 2,000 ML IV ONE (11:04)
[2024-05-22 11:06] VITALS: PULSE 85; RESP 16; O2SAT 96
[2024-05-22 11:06] LABS: BASOPHILS % (AUTO) 1.2 % (0.0-2.0); EOSINOPHILS % (AUTO) 5.9 % (1.0-6.0); HEMATOCRIT 46.2 % (41-53); HEMOGLOBIN 14.8 g/dL (13.5-17.5); LYMPHOCYTES # (AUTO) 2.9 K/uL (1.0-4.8); LYMPHOCYTES % (AUTO) 25.6 % (22.0-44.0); MEAN CORPUSCULAR HEMOGLOBIN 26.2 pg (26.0-34.0); MEAN CORPUSCULAR VOLUME 82 fL (80-100); MONOCYTES # (AUTO) 1.1 K/uL (0.1-1.0); MONOCYTES % (AUTO) 9.7 % (2.0-9.0); NEUTROPHILS # (AUTO) 6.4 K/uL (1.8-7.7); NEUTROPHILS % (AUTO) 57.6 % (40.0-70.0); PLATELET COUNT (AUTO) 408 K/uL (150-450); RED BLOOD CELL COUNT(AUTO) 5.63 MIL/uL (4.50-5.90); RED CELL DISTRIBUTION WIDTH 15.8 % (11.5-14.5); WHITE BLOOD COUNT (AUTO) 11.1 K/uL (4.5-11.0)
[2024-05-22] MEDS: ALBUTEROL SULFATE 2.5 MG/0.5 ML 5 ML NEB SOLUTION NEB ONE (11:06)
[2024-05-22] MEDS: IPRATROPIUM BROMIDE 0.5 MG/2.5 ML NEB SOLUTION NEB ONE (11:06)
[2024-05-22 11:08] LABS: COVID AG,FIA SOURCE NASAL SWAB
[2024-05-22] MEDS ORDERED: ZOLPIDEM TARTRATE 5 MG TABLET PO PRN (11:15)
[2024-05-22] MEDS ORDERED: MAGNESIUM HYDROXIDE SUSPENSION 30 ML UDCUP PO PRN (11:15)
[2024-05-22 11:21] LABS: PROTHROMBIN TIME 11.7 SEC (9.4-11.6)
[2024-05-22 11:26] LABS: TROPONIN I-HIGH SENSITIVITY 19 ng/L (<76)
[2024-05-22 11:27] LABS: LACTIC ACID 1.4 mmol/L (0.4-2.0)
[2024-05-22 11:28] LABS: INFLUENZA TYPE A NEGATIVE FOR TYPE A (NEGATIVE); INFLUENZA TYPE B NEGATIVE FOR TYPE B (NEGATIVE); SARS-COV2 (COVID) ANTIGEN,FIA Negative (Negative)
[2024-05-22 11:29] LABS: ANION GAP 12 mmol/L (8-16); CARBON DIOXIDE 26 mmol/L (22-29); CHLORIDE 103 mmol/L (98-107); CREATININE 0.85 mg/dL (0.60-1.30); GLUCOSE,RANDOM 80 mg/dL (70-110); POTASSIUM 3.7 mmol/L (3.5-5.1); SODIUM SERUM 141 mmol/L (136-145); UREA NITROGEN, BLOOD 9 mg/dL (7-18)
[2024-05-22 11:30] LABS: CALCIUM, TOTAL 8.9 mg/dL (8.8-10.5); GLOMERULAR FILTR. RATE CALC > 60 mL/min (>60)
[2024-05-22] MEDS ORDERED: DEXTROSE 50%-WATER 25 GM/50 ML SYRINGE IVP PRN (11:30)
[2024-05-22 11:34] LABS: ALANINE AMINOTRANSFERASE 105 U/L (12-78); ALBUMIN 3.3 g/dL (3.4-5.0); ALKALINE PHOSPHATASE 72 U/L (46-116); ASPARTATE AMINOTRANSFERASE 52 U/L (15-37); BILIRUBIN,TOTAL 0.4 mg/dL (0.1-1.0); TOTAL PROTEIN, SERUM 7.6 g/dL (6.4-8.2)
[2024-05-22 11:42] LABS: B-TYPE NATRIURETIC PEPTIDE < 5 pg/mL (0-100)
[2024-05-22] MEDS: MethylPREDNISolone SOD SUCC 125 MG/2 ML VIAL IVP SCH (14:12)
[2024-05-22 15:00] LABS: GLUCOMETER DEV NAME(LOC) ER.7; GLUCOSE,POINT OF CARE 68 MG/DL (70-110)
[2024-05-22 17:16] VITALS: BP 112/67; PULSE 105; RESP 18; TEMP 97.7; O2SAT 93
[2024-05-22] MEDS: INSULIN LISPRO 100 UNITS/ML SQ PRN (17:23)
[2024-05-22 18:00] LABS: GLUCOMETER DEV NAME(LOC) 5S.2D; GLUCOSE,POINT OF CARE 221 MG/DL (70-110)
[2024-05-22 19:54] VITALS: BP 118/58; PULSE 107; RESP 18; TEMP 97.9; O2SAT 96
[2024-05-22] MEDS: SODIUM CHLORIDE 0.9% 500 ML IV ONE (20:57)
[2024-05-22] MEDS: APIXABAN 5 MG TABLET PO SCH (20:58)
[2024-05-22] MEDS: GABAPENTIN 300 MG CAPSULE PO SCH (22:28)
[2024-05-22 22:35] LABS: GLUCOMETER DEV NAME(LOC) 5S.2D; GLUCOSE,POINT OF CARE 345 MG/DL (70-110)
[2024-05-22 23:36] VITALS: BP 127/85; PULSE 103; RESP 18; TEMP 97.8; O2SAT 94
[2024-05-23] VITALS (7 sets, daily range): BP systolic 107–148; BP diastolic 67–79; PULSE 87–102; RESP 17–19; TEMP 97.7–98.5; O2SAT 93–97
[2024-05-23] MEDS ORDERED: 0.9% SODIUM CHLORIDE 5 ML NEB SOLUTION NEB ONE (04:32)
[2024-05-23] MEDS: ALBUTEROL SULFATE 2.5 MG/0.5 ML NEB SOLUTION NEB PRN (04:33)
[2024-05-23 06:06] LABS: BASOPHILS % (AUTO) 0.2 % (0.0-2.0); EOSINOPHILS % (AUTO) 0 % (1.0-6.0); HEMATOCRIT 41.1 % (41-53); HEMOGLOBIN 13.6 g/dL (13.5-17.5); LYMPHOCYTES # (AUTO) 1.1 K/uL (1.0-4.8); LYMPHOCYTES % (AUTO) 6.9 % (22.0-44.0); MEAN CORPUSCULAR HEMOGLOBIN 26.8 pg (26.0-34.0); MEAN CORPUSCULAR HGB CONC 32.9 G/dL (31.0-37.0); MEAN CORPUSCULAR VOLUME 82 fL (80-100); MONOCYTES # (AUTO) 0.3 K/uL (0.1-1.0); MONOCYTES % (AUTO) 1.7 % (2.0-9.0); NEUTROPHILS # (AUTO) 14.2 K/uL (1.8-7.7); PLATELET COUNT (AUTO) 357 K/uL (150-450); RED BLOOD CELL COUNT(AUTO) 5.05 MIL/uL (4.50-5.90); RED CELL DISTRIBUTION WIDTH 15.7 % (11.5-14.5); WHITE BLOOD COUNT (AUTO) 15.5 K/uL (4.5-11.0)
[2024-05-23 06:08] LABS: NEUTROPHILS % (AUTO) 91.2 % (40.0-70.0)
[2024-05-23 06:18] LABS: ANION GAP 12 mmol/L (8-16); CALCIUM, TOTAL 8.7 mg/dL (8.8-10.5); CARBON DIOXIDE 22 mmol/L (22-29); CHLORIDE 107 mmol/L (98-107); CREATININE 0.76 mg/dL (0.60-1.30); GLOMERULAR FILTR. RATE CALC > 60 mL/min (>60); GLUCOSE,RANDOM 193 mg/dL (70-110); SODIUM SERUM 141 mmol/L (136-145); UREA NITROGEN, BLOOD 8 mg/dL (7-18)
[2024-05-23 06:23] LABS: LACTIC ACID 1.2 mmol/L (0.4-2.0)
[2024-05-23] MEDS: FAMOTIDINE 20 MG TABLET PO SCH (08:23)
[2024-05-23] MEDS ORDERED: SODIUM CHLORIDE 0.9% 500 ML IV ONE (12:30)
[2024-05-23] MEDS: CefTRIAXone 1 GM/DEXTROSE 50 ML IV SCH (12:32)
[2024-05-23] MEDS ORDERED: SODIUM CHLORIDE 0.9% 1,000 ML ONE (14:49)
[2024-05-23] MEDS: MethylPREDNISolone SOD SUCC 125 MG/2 ML VIAL IVP SCH (16:26)
[2024-05-23 17:41] LABS: GLUCOMETER DEV NAME(LOC) 5S.2D; GLUCOSE,POINT OF CARE 194 MG/DL (70-110)
[2024-05-23 17:41] LABS: GLUCOMETER DEV NAME(LOC) 5S.2D; GLUCOSE,POINT OF CARE 223 MG/DL (70-110)
[2024-05-23 19:20] LABS: GLUCOMETER DEV NAME(LOC) 5N.2C; GLUCOSE,POINT OF CARE 205 MG/DL (70-110)
[2024-05-23] MEDS: INSULIN GLARGINE,HUM.REC.ANLOG 100 UNITS/ML SQ SCH (20:57)
[2024-05-23 22:15] LABS: GLUCOMETER DEV NAME(LOC) 5S.2D; GLUCOSE,POINT OF CARE 313 MG/DL (70-110)
[2024-05-24 00:45] VITALS: BP 130/75; PULSE 74; RESP 20; TEMP 98.6; O2SAT 95
[2024-05-24 02:07] VITALS: PULSE 86; RESP 18; O2SAT 96
[2024-05-24 02:22] VITALS: PULSE 83; RESP 18; O2SAT 97
[2024-05-24 06:01] VITALS: BP 138/80; PULSE 83; RESP 18; TEMP 97.6; O2SAT 94
[2024-05-24 07:16] LABS: GLUCOMETER DEV NAME(LOC) 5N.2C; GLUCOSE,POINT OF CARE 209 MG/DL (70-110)
[2024-05-24 08:00] VITALS: BP 137/78; PULSE 83; RESP 18; TEMP 98.7; O2SAT 94
[2024-05-24 09:09] VITALS: BP 138/92; PULSE 72; RESP 18; TEMP 98.2; O2SAT 97
[2024-05-24 12:36] LABS: GLUCOMETER DEV NAME(LOC) 5S.2D; GLUCOSE,POINT OF CARE 231 MG/DL (70-110)
[2024-05-24] MEDS ORDERED: AZIT500T4 PO (13:48)
[2024-05-24] MEDS ORDERED: FAMO20TA8 PO (13:49)
[2024-05-24] MEDS ORDERED: PRED5TAB2 PO (13:50)
[2024-05-24] MEDS ORDERED: INSU100V SQ (13:53)
[2024-05-25] MEDS ORDERED: PredniSONE 20 MG TABLET PO SCH (09:00)
[2024-05-25] MEDS ORDERED: AZITHROMYCIN 500 MG TABLET PO SCH (09:00)
== END 2024-05-24 19:07 | DRG 202 ==
LOC: EMS 10:17 → UNDOADMIN 11:38 → EDH 11:38 → 5S 16:50
PROVIDERS: ADMIT Internal Medicine; ATTEND Internal Medicine
DX: J20.9 Acute bronchitis, unspecified (principal); E44.0 Moderate protein-calorie malnutrition; J44.1 Chronic obstructive pulmonary disease with (acute) exacerbation; J44.0 Chronic obstructive pulmonary disease with (acute) lower respiratory infection; Z20.822 Contact with and (suspected) exposure to COVID-19; E11.9 Type 2 diabetes mellitus without complications; G47.30 Sleep apnea, unspecified; G89.29 Other chronic pain; E03.9 Hypothyroidism, unspecified; E78.00 Pure hypercholesterolemia, unspecified; I10 Essential (primary) hypertension; E66.01 Morbid (severe) obesity due to excess calories; G47.33 Obstructive sleep apnea (adult) (pediatric); Z79.899 Other long term (current) drug therapy; Z79.01 Long term (current) use of anticoagulants; Z86.711 Personal history of pulmonary embolism; Z88.8 Allergy status to other drugs, medicaments and biological substances; Z91.013 Allergy to seafood; Z99.81 Dependence on supplemental oxygen; Z88.6 Allergy status to analgesic agent; Z68.41 Body mass index [BMI] 40.0-44.9, adult
CPT/HCPCS: 71045; 80048; 80076; 82962; 83605; 83880; 84145; 84484; 85025; 85610; 87040; 87340; 87804; 93005; 94640; 94644; 99291; J0696; J1815; J2919; J7030; J7040; 36415-L1; 36415-TC; J7613

== ENCOUNTER 2024-06-05 15:07 | Inpatient (IN) | payer OTHER ==
[~2024-06-05] VITALS: Ht 170.2 cm; Wt 136.0 kg
[~2024-06-05 15:07] MED LIST changes: -APIX5TAB PO; +AZIT500T4 PO; -CYAN500T56 PO; -INSLAN SQ; +INSU100V SQ; -PRED-554 PO; +PRED5TAB2 PO; -TRAM50TA5 PO
[2024-06-05 16:14] VITALS: PULSE 80; RESP 20; O2SAT 95
[2024-06-05] MEDS: ALBUTEROL SULFATE 2.5 MG/0.5 ML NEB SOLUTION NEB ONE (16:14)
[2024-06-05] MEDS: IPRATROPIUM BROMIDE 0.5 MG/2.5 ML NEB SOLUTION NEB ONE (16:14)
[2024-06-05 16:29] VITALS: PULSE 80; RESP 20; O2SAT 99
[2024-06-05 16:41] LABS: BASOPHILS % (AUTO) 1.1 % (0.0-2.0); EOSINOPHILS % (AUTO) 0.7 % (1.0-6.0); HEMATOCRIT 43.1 % (41-53); HEMOGLOBIN 13.7 g/dL (13.5-17.5); LYMPHOCYTES # (AUTO) 3.2 K/uL (1.0-4.8); LYMPHOCYTES % (AUTO) 22.2 % (22.0-44.0); MEAN CORPUSCULAR HEMOGLOBIN 26.2 pg (26.0-34.0); MEAN CORPUSCULAR HGB CONC 31.8 G/dL (31.0-37.0); MEAN CORPUSCULAR VOLUME 82 fL (80-100); MONOCYTES # (AUTO) 0.8 K/uL (0.1-1.0); MONOCYTES % (AUTO) 5.8 % (2.0-9.0); NEUTROPHILS % (AUTO) 70.2 % (40.0-70.0); PLATELET COUNT (AUTO) 354 K/uL (150-450); RED BLOOD CELL COUNT(AUTO) 5.23 MIL/uL (4.50-5.90); RED CELL DISTRIBUTION WIDTH 16.1 % (11.5-14.5); WHITE BLOOD COUNT (AUTO) 14.3 K/uL (4.5-11.0)
[2024-06-05] MEDS: MethylPREDNISolone SOD SUCC 125 MG/2 ML VIAL IVP ONE (16:41)
[2024-06-05 16:59] LABS: B-TYPE NATRIURETIC PEPTIDE 6 pg/mL (0-100)
[2024-06-05 17:01] LABS: ANION GAP 8 mmol/L (8-16); CALCIUM, TOTAL 8.3 mg/dL (8.8-10.5); CARBON DIOXIDE 27 mmol/L (22-29); CHLORIDE 103 mmol/L (98-107); CREATININE 0.89 mg/dL (0.60-1.30); GLOMERULAR FILTR. RATE CALC > 60 mL/min (>60); GLUCOSE,RANDOM 112 mg/dL (70-110); POTASSIUM 4.1 mmol/L (3.5-5.1); SODIUM SERUM 137 mmol/L (136-145); UREA NITROGEN, BLOOD 11 mg/dL (7-18)
[2024-06-05 17:08] LABS: TROPONIN I-HIGH SENSITIVITY 10 ng/L (<76)
[2024-06-05 17:18] LABS: CREATINE KINASE, TOTAL ONLY 87 U/L (39-308)
[2024-06-05 19:20] LABS: GLUCOMETER DEV NAME(LOC) ER.7; GLUCOSE,POINT OF CARE 106 MG/DL (70-110)
[2024-06-05] MEDS ORDERED: ACETAMINOPHEN 325 MG TABLET PO PRN (19:45)
[2024-06-05] MEDS ORDERED: ZOLPIDEM TARTRATE 5 MG TABLET PO PRN (19:45)
[2024-06-05] MEDS ORDERED: IPRATROPIUM BROMIDE 0.5 MG/2.5 ML NEB SOLUTION NEB PRN (19:45)
[2024-06-05] MEDS ORDERED: ALBUTEROL SULFATE 2.5 MG/0.5 ML NEB SOLUTION NEB PRN (19:45)
[2024-06-05] MEDS ORDERED: ONDANSETRON HCL 4 MG/2 ML VIAL IVP PRN (19:45)
[2024-06-05] MEDS ORDERED: MAGNESIUM HYDROXIDE SUSPENSION 30 ML UDCUP PO PRN (19:45)
[2024-06-05] MEDS ORDERED: BISACODYL 10 MG RECTAL RECTAL SUPPOSITORY PR PRN (19:45)
[2024-06-05 19:59] LABS: COVID AG,FIA SOURCE NASAL SWAB
[2024-06-05 20:23] LABS: INFLUENZA TYPE A NEGATIVE FOR TYPE A (NEGATIVE); INFLUENZA TYPE B NEGATIVE FOR TYPE B (NEGATIVE); SARS-COV2 (COVID) ANTIGEN,FIA Negative (Negative)
[2024-06-05] MEDS: DOCUSATE SODIUM 100 MG CAPSULE PO SCH (20:53)
[2024-06-05] MEDS: GABAPENTIN 300 MG CAPSULE PO SCH (20:53)
[2024-06-05 21:14] VITALS: BP 110/63; PULSE 90; RESP 18; TEMP 97.8; O2SAT 92
[2024-06-05] MEDS ORDERED: LEVO175T58 PO (22:46)
[2024-06-05] MEDS ORDERED: NALO4SPR NASAL (22:46)
[2024-06-05] MEDS ORDERED: APIX5TAB PO (22:46)
[2024-06-05] MEDS ORDERED: INSLAN SQ (22:46)
[2024-06-05] MEDS ORDERED: LEVA15HF3 IH (22:46)
[2024-06-05] MEDS ORDERED: LIDO1ADH83 TP (22:46)
[2024-06-05] MEDS ORDERED: SEMA2PEN SQ (22:46)
[2024-06-06] VITALS (15 sets, daily range): BP systolic 123–147; BP diastolic 75–93; PULSE 72–106; RESP 16–22; TEMP 97.4–98.6; O2SAT 92–100
[2024-06-06] MEDS: HEPARIN SODIUM,PORCINE 5,000 UNITS/ML VIAL SQ SCH (00:28)
[2024-06-06] MEDS: MethylPREDNISolone SOD SUCC 125 MG/2 ML VIAL IVP SCH (00:28)
[2024-06-06] MEDS: ALBUTEROL SULFATE 2.5 MG/0.5 ML NEB SOLUTION NEB SCH (00:56)
[2024-06-06] MEDS: IPRATROPIUM BROMIDE 0.5 MG/2.5 ML NEB SOLUTION NEB SCH (00:56)
[2024-06-06] MEDS: PANTOPRAZOLE SODIUM 40 MG DR TABLET PO SCH (08:11)
[2024-06-06] MEDS: CHOLECALCIFEROL (VIT D3) 2,000 UNITS [50 MCG] TABLET PO SCH (08:12)
[2024-06-06] MEDS: ROSUVASTATIN CALCIUM 10 MG TABLET PO SCH (08:12)
[2024-06-06] MEDS: FLUTICASONE IH SCH (08:14)
[2024-06-06] MEDS: SALMETEROL IH SCH (08:14)
[2024-06-06] MEDS ORDERED: PANTOPRAZOLE SODIUM 40 MG DR TABLET PO SCH (09:00)
[2024-06-06 12:35] LABS: GLUCOMETER DEV NAME(LOC) 5S.2D; GLUCOSE,POINT OF CARE 288 MG/DL (70-110)
[2024-06-07] VITALS (8 sets, daily range): BP systolic 112–140; BP diastolic 65–98; PULSE 76–98; RESP 16–20; TEMP 97.4–98.2; O2SAT 94–99
[2024-06-07] MEDS: LEVOFLOXACIN 750 MG TABLET PO ONE (21:50)
== END 2024-06-07 23:18 | disposition left against medical advice (07) | DRG 191 ==
LOC: EMS 15:07 → EDH 19:37 → 5N 20:29 → 6S 06-07 19:07
PROVIDERS: ADMIT Hospitalist; ATTEND Hospitalist
DX: J44.1 Chronic obstructive pulmonary disease with (acute) exacerbation (principal); J81.1 Chronic pulmonary edema; E11.9 Type 2 diabetes mellitus without complications; I10 Essential (primary) hypertension; Z20.822 Contact with and (suspected) exposure to COVID-19; E03.9 Hypothyroidism, unspecified; R09.02 Hypoxemia; E78.00 Pure hypercholesterolemia, unspecified; Z53.29 Procedure and treatment not carried out because of patient's decision for other reasons; G89.29 Other chronic pain; Z88.6 Allergy status to analgesic agent; Z86.19 Personal history of other infectious and parasitic diseases; Z86.711 Personal history of pulmonary embolism
CPT/HCPCS: 71045; 80048; 82550; 82962; 83880; 84484; 85025; 87804; 93005; 94640; 99285; J1644; J2919; J3535; 36415-L1; 36415-TC; J7613

== ENCOUNTER 2024-07-29 18:08 | Inpatient (IN) | payer OTHER ==
[~2024-07-29] VITALS: Ht 170.2 cm; Wt 128.0 kg
[~2024-07-29 18:08] MED LIST changes: +APIX5TAB PO; -AZIT500T4 PO; +INSLAN SQ; -INSREG SQ; -INSU100V SQ; +LEVA15HF3 IH; +LEVO175T58 PO; +LIDO1ADH83 TP; +NALO4SPR NASAL; -PRED5TAB2 PO; +SEMA2PEN SQ
[2024-07-29 20:23] LABS: EOSINOPHILS % (AUTO) 1.2 % (1.0-6.0); HEMATOCRIT 40.4 % (41-53); HEMOGLOBIN 12.7 g/dL (13.5-17.5); LYMPHOCYTES # (AUTO) 2.7 K/uL (1.0-4.8); LYMPHOCYTES % (AUTO) 16.5 % (22.0-44.0); MEAN CORPUSCULAR HEMOGLOBIN 25.9 pg (26.0-34.0); MEAN CORPUSCULAR HGB CONC 31.4 G/dL (31.0-37.0); MEAN CORPUSCULAR VOLUME 82 fL (80-100); MONOCYTES # (AUTO) 1.2 K/uL (0.1-1.0); MONOCYTES % (AUTO) 7.2 % (2.0-9.0); NEUTROPHILS # (AUTO) 12.2 K/uL (1.8-7.7); NEUTROPHILS % (AUTO) 74.1 % (40.0-70.0); PLATELET COUNT (AUTO) 427 K/uL (150-450); RED BLOOD CELL COUNT(AUTO) 4.91 MIL/uL (4.50-5.90); RED CELL DISTRIBUTION WIDTH 16.4 % (11.5-14.5); WHITE BLOOD COUNT (AUTO) 16.5 K/uL (4.5-11.0)
[2024-07-29 20:28] LABS: ANION GAP 2 mmol/L (8-16); CALCIUM, TOTAL 8.9 mg/dL (8.8-10.5); CARBON DIOXIDE 28 mmol/L (22-29); CHLORIDE 104 mmol/L (98-107); CREATININE 0.69 mg/dL (0.60-1.30); GLOMERULAR FILTR. RATE CALC > 60 mL/min (>60); GLUCOSE,RANDOM 110 mg/dL (70-110); POTASSIUM 3.4 mmol/L (3.5-5.1); SODIUM SERUM 134 mmol/L (136-145); UREA NITROGEN, BLOOD 13 mg/dL (7-18)
[2024-07-29 20:34] LABS: ALBUMIN 3.2 g/dL (3.4-5.0); BILIRUBIN,DIRECT 0.1 mg/dL (0.00-0.20); BILIRUBIN,TOTAL 0.2 mg/dL (0.1-1.0); TOTAL PROTEIN, SERUM 7.3 g/dL (6.4-8.2)
[2024-07-29 20:36] LABS: B-TYPE NATRIURETIC PEPTIDE 8 pg/mL (0-100)
[2024-07-29 20:40] LABS: CREATINE KINASE, TOTAL ONLY 80 U/L (39-308); TROPONIN I-HIGH SENSITIVITY 11 ng/L (<76)
[2024-07-29 22:07] LABS: INFLUENZA A-RTPCR,COMBO NEGATIVE (NEGATIVE); INFLUENZA B-RTPCR,COMBO NEGATIVE (NEGATIVE); RESPIRATORY SYNCYTIAL VRS-PCR NEGATIVE (NEGATIVE); SARS COVID19 RTPCR, COMBO NEGATIVE (NEGATIVE)
[2024-07-29] MEDS ORDERED: 0.9% SODIUM CHLORIDE 15 ML NEB SOLUTION NEB ONE (22:17)
[2024-07-29 22:24] LABS: APPEARANCE,URINE CLEAR (CLEAR); BILIRUBIN,URINE NEGATIVE (NEGATIVE); COLOR,URINE COLORLESS (YELLOW); GLUCOSE, URINE (UA) NEGATIVE (NEGATIVE); KETONES,URINE NEGATIVE (NEGATIVE); LEUKOCYTE ESTERASE ,URINE NEGATIVE (NEGATIVE); NITRATE,URINE NEGATIVE (NEGATIVE); OCCULT BLOOD,URINE NEGATIVE (NEGATIVE); PROTEIN,URINE NEGATIVE (NEGATIVE); SPECIFIC GRAVITIY, URINE 1.013 (1.003-1.030); UROBILINOGEN,URINE <=1.0 mg/dL (<=1.0)
[2024-07-29] MEDS: ALBUTEROL SULFATE 2.5 MG/0.5 ML 5 ML NEB SOLUTION NEB ONE (22:24)
[2024-07-29] MEDS: IPRATROPIUM BROMIDE 0.5 MG/2.5 ML NEB SOLUTION NEB ONE ×2 (22:24→22:28)
[2024-07-29] MEDS: ALBUTEROL SULFATE 2.5 MG/0.5 ML NEB SOLUTION NEB ONE (22:28)
[2024-07-29 22:30] VITALS: PULSE 70; RESP 18; O2SAT 99
[2024-07-29] MEDS: MethylPREDNISolone SOD SUCC 125 MG/2 ML VIAL IVP ONE (22:30)
[2024-07-29 22:45] VITALS: PULSE 74; RESP 18; O2SAT 99
[2024-07-29] MEDS ORDERED: ZOLPIDEM TARTRATE 5 MG TABLET PO PRN (23:00)
[2024-07-29] MEDS ORDERED: POTASSIUM CHL 10 MEQ/WATER 50 ML IV PRN (23:00)
[2024-07-29] MEDS ORDERED: DEXTROSE 50%-WATER 25 GM/50 ML SYRINGE IVP PRN (23:00)
[2024-07-29] MEDS ORDERED: ALBUTEROL SULFATE 2.5 MG/0.5 ML NEB SOLUTION NEB PRN (23:00)
[2024-07-29 23:31] LABS: THYROID STIMULATING HORMONE 0.12 uIU/mL (0.36-3.74)
[2024-07-30] MEDS: HEPARIN SODIUM,PORCINE 5,000 UNITS/ML VIAL SQ SCH (01:37)
[2024-07-30 01:45] VITALS: BP 125/73; PULSE 77; RESP 18; TEMP 97.6; O2SAT 95
[2024-07-30] MEDS: MethylPREDNISolone SOD SUCC 125 MG/2 ML VIAL IVP SCH (05:45)
[2024-07-30 05:58] VITALS: BP 124/66; PULSE 91; RESP 18; TEMP 97.8; O2SAT 95
[2024-07-30] MEDS: INSULIN LISPRO 100 UNITS/ML SQ PRN (06:07)
[2024-07-30] MEDS: DOCUSATE SODIUM 100 MG CAPSULE PO SCH (08:36)
[2024-07-30] MEDS: FAMOTIDINE 20 MG TABLET PO SCH (08:36)
[2024-07-30 09:06] VITALS: BP 141/80; PULSE 89; RESP 18; TEMP 97.5; O2SAT 98
[2024-07-30] MEDS ORDERED: ALBUTEROL SULFATE 2.5 MG/0.5 ML NEB SOLUTION NEB PRN (09:45)
[2024-07-30] MEDS: GABAPENTIN 300 MG CAPSULE PO SCH (15:16)
[2024-07-30] MEDS: POTASSIUM CHLORIDE 20 MEQ ER TABLET PO PRN (15:16)
[2024-07-30 15:20] LABS: GLUCOMETER DEV NAME(LOC) 6S.2; GLUCOSE,POINT OF CARE 221 MG/DL (70-110)
[2024-07-30 20:03] VITALS: BP 123/75; PULSE 72; RESP 19; TEMP 97.5; O2SAT 96
[2024-07-30 20:06] LABS: GLUCOMETER DEV NAME(LOC) 6N.2B; GLUCOSE,POINT OF CARE 157 MG/DL (70-110)
[2024-07-30] MEDS: APIXABAN 5 MG TABLET PO SCH (20:10)
[2024-07-30 23:11] LABS: GLUCOMETER DEV NAME(LOC) 6S.1D; GLUCOSE,POINT OF CARE 214 MG/DL (70-110)
[2024-07-31 04:00] VITALS: BP 111/80; PULSE 84; RESP 18; TEMP 97.8; O2SAT 93
[2024-07-31 06:31] LABS: GLUCOMETER DEV NAME(LOC) 6S.1D; GLUCOSE,POINT OF CARE 169 MG/DL (70-110)
[2024-07-31 08:56] VITALS: BP 107/56; PULSE 66; RESP 18; TEMP 97.6; O2SAT 97
[2024-07-31] MEDS: PredniSONE 20 MG TABLET PO SCH (12:39)
[2024-07-31 15:51] LABS: GLUCOMETER DEV NAME(LOC) 6S.1D; GLUCOSE,POINT OF CARE 175 MG/DL (70-110)
[2024-07-31 19:28] VITALS: BP 139/80; PULSE 66; RESP 18; TEMP 97.2; O2SAT 99
[2024-07-31 20:05] LABS: GLUCOMETER DEV NAME(LOC) 6N.2B; GLUCOSE,POINT OF CARE 210 MG/DL (70-110)
[2024-07-31 20:10] LABS: GLUCOMETER DEV NAME(LOC) 6S.2; GLUCOSE,POINT OF CARE 229 MG/DL (70-110)
[2024-08-01 04:40] VITALS: BP 99/68; PULSE 60; RESP 19; TEMP 98.5; O2SAT 95
[2024-08-01 08:29] VITALS: BP 113/69; PULSE 59; RESP 18; TEMP 97.6; O2SAT 96
[2024-08-01 09:57] LABS: BASOPHILS % (AUTO) 0.6 % (0.0-2.0); EOSINOPHILS % (AUTO) 0.1 % (1.0-6.0); HEMATOCRIT 41.8 % (41-53); HEMOGLOBIN 13.2 g/dL (13.5-17.5); LYMPHOCYTES # (AUTO) 3.2 K/uL (1.0-4.8); LYMPHOCYTES % (AUTO) 19.6 % (22.0-44.0); MEAN CORPUSCULAR HEMOGLOBIN 25.8 pg (26.0-34.0); MEAN CORPUSCULAR HGB CONC 31.7 G/dL (31.0-37.0); MEAN CORPUSCULAR VOLUME 81 fL (80-100); MONOCYTES # (AUTO) 1.1 K/uL (0.1-1.0); MONOCYTES % (AUTO) 6.5 % (2.0-9.0); NEUTROPHILS % (AUTO) 73.2 % (40.0-70.0); PLATELET COUNT (AUTO) 406 K/uL (150-450); RED BLOOD CELL COUNT(AUTO) 5.14 MIL/uL (4.50-5.90); RED CELL DISTRIBUTION WIDTH 16.4 % (11.5-14.5); WHITE BLOOD COUNT (AUTO) 16.4 K/uL (4.5-11.0)
[2024-08-01] MEDS ORDERED: LEVO125 PO (13:15)
[2024-08-01] MEDS ORDERED: DOCU-385 PO (13:16)
[2024-08-01 17:21] LABS: GLUCOMETER DEV NAME(LOC) 6S.2; GLUCOSE,POINT OF CARE 107 MG/DL (70-110)
[2024-08-01 17:21] LABS: GLUCOMETER DEV NAME(LOC) 6S.2; GLUCOSE,POINT OF CARE 101 MG/DL (70-110)
[2024-08-01 21:25] LABS: GLUCOMETER DEV NAME(LOC) 6S.1D; GLUCOSE,POINT OF CARE 179 MG/DL (70-110)
== END 2024-08-01 19:30 | DRG 189 ==
LOC: EMS 18:17 → EDH 22:55 → 6S 07-30 01:30
PROVIDERS: ADMIT Internal Medicine; ATTEND Internal Medicine
DX: J96.21 Acute and chronic respiratory failure with hypoxia (principal); J44.1 Chronic obstructive pulmonary disease with (acute) exacerbation; D68.59 Other primary thrombophilia; E44.0 Moderate protein-calorie malnutrition; Z68.41 Body mass index [BMI] 40.0-44.9, adult; E66.01 Morbid (severe) obesity due to excess calories; E03.9 Hypothyroidism, unspecified; E11.40 Type 2 diabetes mellitus with diabetic neuropathy, unspecified; G47.33 Obstructive sleep apnea (adult) (pediatric); I10 Essential (primary) hypertension; Z20.822 Contact with and (suspected) exposure to COVID-19; E05.90 Thyrotoxicosis, unspecified without thyrotoxic crisis or storm; E78.00 Pure hypercholesterolemia, unspecified; G89.29 Other chronic pain; F10.20 Alcohol dependence, uncomplicated; Y90.9 Presence of alcohol in blood, level not specified; B19.20 Unspecified viral hepatitis C without hepatic coma; Z79.01 Long term (current) use of anticoagulants; Z79.4 Long term (current) use of insulin; Z86.711 Personal history of pulmonary embolism; Z88.6 Allergy status to analgesic agent; Z99.81 Dependence on supplemental oxygen; Z88.8 Allergy status to other drugs, medicaments and biological substances
CPT/HCPCS: 0241U; 71045; 80048; 80076; 81003; 82550; 82962; 83735; 83880; 84132; 84443; 84484; 85025; 85379; 87040; 93005; 94640; 96372; 96374; 96375; 99285; G0378; J1644; J2919; 36415-L1; 36415-TC; J7613

== ENCOUNTER 2024-08-21 18:46 | Inpatient (IN) | payer OTHER ==
[2024-08-21] VITALS: PULSE 69; RESP 16; O2SAT 69; O2SAT 94
[~2024-08-21] VITALS: Ht 170.2 cm; Wt 126.1 kg
[~2024-08-21 18:46] MED LIST changes: +DOCU-385 PO; -INSLAN SQ; +LEVO125 PO; -LEVO175T58 PO; -NALO4SPR NASAL
[2024-08-21 20:11] LABS: BASOPHILS % (AUTO) 0.5 % (0.0-2.0); EOSINOPHILS % (AUTO) 2.8 % (1.0-6.0); HEMATOCRIT 42.6 % (41-53); HEMOGLOBIN 13.4 g/dL (13.5-17.5); LYMPHOCYTES # (AUTO) 1.1 K/uL (1.0-4.8); LYMPHOCYTES % (AUTO) 9.2 % (22.0-44.0); MEAN CORPUSCULAR HEMOGLOBIN 25.7 pg (26.0-34.0); MEAN CORPUSCULAR HGB CONC 31.5 G/dL (31.0-37.0); MEAN CORPUSCULAR VOLUME 82 fL (80-100); MONOCYTES # (AUTO) 0.4 K/uL (0.1-1.0); MONOCYTES % (AUTO) 3.2 % (2.0-9.0); NEUTROPHILS # (AUTO) 10.3 K/uL (1.8-7.7); NEUTROPHILS % (AUTO) 84.3 % (40.0-70.0); PLATELET COUNT (AUTO) 359 K/uL (150-450); RED BLOOD CELL COUNT(AUTO) 5.22 MIL/uL (4.50-5.90); RED CELL DISTRIBUTION WIDTH 16.2 % (11.5-14.5); WHITE BLOOD COUNT (AUTO) 12.2 K/uL (4.5-11.0)
[2024-08-21 20:23] LABS: ANION GAP 6 mmol/L (8-16); CALCIUM, TOTAL 8.7 mg/dL (8.8-10.5); CARBON DIOXIDE 26 mmol/L (22-29); CHLORIDE 108 mmol/L (98-107); CREATININE 0.93 mg/dL (0.60-1.30); GLOMERULAR FILTR. RATE CALC > 60 mL/min (>60); GLUCOSE,RANDOM 104 mg/dL (70-110); SODIUM SERUM 140 mmol/L (136-145); UREA NITROGEN, BLOOD 13 mg/dL (7-18)
[2024-08-21 20:27] LABS: ALANINE AMINOTRANSFERASE 25 U/L (12-78); ALKALINE PHOSPHATASE 67 U/L (46-116); ASPARTATE AMINOTRANSFERASE 14 U/L (15-37); BILIRUBIN,DIRECT < 0.05 mg/dL (0.00-0.20); BILIRUBIN,TOTAL 0.2 mg/dL (0.1-1.0); TOTAL PROTEIN, SERUM 6.9 g/dL (6.4-8.2)
[2024-08-21 20:28] LABS: B-TYPE NATRIURETIC PEPTIDE < 5 pg/mL (0-100)
[2024-08-21 20:29] LABS: TROPONIN I-HIGH SENSITIVITY 12 ng/L (<76)
[2024-08-21] MEDS: MethylPREDNISolone SOD SUCC 125 MG/2 ML VIAL IVP ONE (22:27)
[2024-08-21 22:42] LABS: COVID AG,FIA SOURCE NASAL SWAB
[2024-08-21 23:09] LABS: SARS-COV2 (COVID) ANTIGEN,FIA Negative (Negative)
[2024-08-21 23:10] LABS: INFLUENZA TYPE A NEGATIVE FOR TYPE A (NEGATIVE); INFLUENZA TYPE B NEGATIVE FOR TYPE B (NEGATIVE)
[2024-08-21] MEDS ORDERED: MAGNESIUM HYDROXIDE SUSPENSION 30 ML UDCUP PO PRN (23:30)
[2024-08-21] MEDS ORDERED: IPRATROPIUM BROMIDE 0.5 MG/2.5 ML NEB SOLUTION NEB PRN (23:30)
[2024-08-21] MEDS ORDERED: BISACODYL 10 MG RECTAL RECTAL SUPPOSITORY PR PRN (23:30)
[2024-08-21] MEDS ORDERED: ONDANSETRON HCL 4 MG/2 ML VIAL IVP PRN (23:30)
[2024-08-21] MEDS ORDERED: ZOLPIDEM TARTRATE 5 MG TABLET PO PRN (23:30)
[2024-08-21] MEDS ORDERED: ALBUTEROL SULFATE 2.5 MG/0.5 ML NEB SOLUTION NEB PRN (23:30)
[2024-08-22] VITALS (13 sets, daily range): BP systolic 102–131; BP diastolic 57–83; PULSE 62–100; RESP 16–19; TEMP 97.3–97.7; O2SAT 92–99
[2024-08-22] MEDS: HEPARIN SODIUM,PORCINE 5,000 UNITS/ML VIAL SQ SCH
[2024-08-22] MEDS: ALBUTEROL SULFATE 2.5 MG/0.5 ML NEB SOLUTION NEB ONE
[2024-08-22] MEDS: IPRATROPIUM BROMIDE 0.5 MG/2.5 ML NEB SOLUTION NEB ONE
[2024-08-22] MEDS: AZITHROMYCIN 500 MG/NS 250 ML IV SCH (01:26)
[2024-08-22] MEDS: MethylPREDNISolone SOD SUCC 125 MG/2 ML VIAL IVP SCH (01:27)
[2024-08-22] MEDS: CefTRIAXone 1 GM/DEXTROSE 50 ML IV SCH (01:27)
[2024-08-22] MEDS: IPRATROPIUM BROMIDE 0.5 MG/2.5 ML NEB SOLUTION NEB SCH (02:00)
[2024-08-22] MEDS: ALBUTEROL SULFATE 2.5 MG/0.5 ML NEB SOLUTION NEB SCH (02:00)
[2024-08-22] MEDS: LEVOTHYROXINE SODIUM 125 MCG TABLET PO SCH (06:01)
[2024-08-22] MEDS: APIXABAN 5 MG TABLET PO SCH (08:07)
[2024-08-22] MEDS: BENZONATATE 100 MG CAPSULE PO SCH (08:07)
[2024-08-22] MEDS: DOCUSATE SODIUM 100 MG CAPSULE PO SCH (08:07)
[2024-08-22] MEDS: GABAPENTIN 300 MG CAPSULE PO SCH (08:08)
[2024-08-22] MEDS: GuaiFENesin SR 600 MG ER TABLET PO SCH (08:08)
[2024-08-22] MEDS: PANTOPRAZOLE SODIUM 40 MG DR TABLET PO SCH (08:08)
[2024-08-22] MEDS: ROSUVASTATIN CALCIUM 10 MG TABLET PO SCH (08:08)
[2024-08-22] MEDS: CHOLECALCIFEROL (VIT D3) 2,000 UNITS [50 MCG] TABLET PO SCH (11:51)
[2024-08-22] MEDS ORDERED: SODIUM CHLORIDE 0.9% 250 ML IV ONE (23:05)
[2024-08-23] VITALS (10 sets, daily range): BP systolic 116–135; BP diastolic 67–83; PULSE 68–93; RESP 18–21; TEMP 97.5–98.1; O2SAT 94–98
[2024-08-23] MEDS: MORPHINE SULFATE 2 MG/ML SYRINGE IVP PRN (14:58)
[2024-08-23] MEDS ORDERED: BENZ-227 PO (18:06)
[2024-08-23] MEDS ORDERED: GUAIF600 PO (18:10)
[2024-08-23] MEDS ORDERED: PRED-554 PO (18:36)
== END 2024-08-23 23:50 | DRG 189 ==
LOC: EMS 18:46 → EDH 23:16 → 5S 08-22 02:00
PROVIDERS: ADMIT Internal Medicine; ATTEND Internal Medicine
DX: J96.21 Acute and chronic respiratory failure with hypoxia (principal); J44.1 Chronic obstructive pulmonary disease with (acute) exacerbation; Z68.41 Body mass index [BMI] 40.0-44.9, adult; F10.20 Alcohol dependence, uncomplicated; E03.9 Hypothyroidism, unspecified; E11.9 Type 2 diabetes mellitus without complications; I10 Essential (primary) hypertension; E66.01 Morbid (severe) obesity due to excess calories; B19.20 Unspecified viral hepatitis C without hepatic coma; Z20.822 Contact with and (suspected) exposure to COVID-19; E78.00 Pure hypercholesterolemia, unspecified; G89.29 Other chronic pain; K59.00 Constipation, unspecified; Z88.6 Allergy status to analgesic agent; Z86.711 Personal history of pulmonary embolism; Z79.01 Long term (current) use of anticoagulants; Z79.899 Other long term (current) drug therapy
CPT/HCPCS: 71045; 80048; 80076; 83880; 84484; 85025; 87804; 93005; 94640; 99291; G0378; J0456; J0696; J1644; J2270; J2919; J7050; 36415-L1; 36415-TC; J7613

== ENCOUNTER 2024-09-21 15:09 | Inpatient (IN) | payer OTHER ==
[~2024-09-21] VITALS: Ht 170.2 cm; Wt 132.0 kg
[~2024-09-21 15:09] MED LIST changes: +BENZ-227 PO; -DOCU-385 PO; +GUAIF600 PO; +PRED-554 PO
[2024-09-21 16:21] LABS: EOSINOPHILS % (AUTO) 1.6 % (1.0-6.0); HEMATOCRIT 43.1 % (41-53); HEMOGLOBIN 13.6 g/dL (13.5-17.5); LYMPHOCYTES # (AUTO) 3.3 K/uL (1.0-4.8); LYMPHOCYTES % (AUTO) 22.1 % (22.0-44.0); MEAN CORPUSCULAR HEMOGLOBIN 25.3 pg (26.0-34.0); MEAN CORPUSCULAR HGB CONC 31.5 G/dL (31.0-37.0); MEAN CORPUSCULAR VOLUME 80 fL (80-100); MONOCYTES # (AUTO) 1.2 K/uL (0.1-1.0); MONOCYTES % (AUTO) 8.3 % (2.0-9.0); NEUTROPHILS # (AUTO) 10.1 K/uL (1.8-7.7); PLATELET COUNT (AUTO) 391 K/uL (150-450); RED BLOOD CELL COUNT(AUTO) 5.38 MIL/uL (4.50-5.90); RED CELL DISTRIBUTION WIDTH 16.5 % (11.5-14.5)
[2024-09-21 16:25] VITALS: PULSE 70; RESP 20; O2SAT 95
[2024-09-21 16:25] LABS: ANION GAP 8 mmol/L (8-16); CALCIUM, TOTAL 8.6 mg/dL (8.8-10.5); CARBON DIOXIDE 26 mmol/L (22-29); CHLORIDE 107 mmol/L (98-107); CREATININE 0.95 mg/dL (0.60-1.30); GLOMERULAR FILTR. RATE CALC > 60 mL/min (>60); GLUCOSE,RANDOM 127 mg/dL (70-110); POTASSIUM 4.1 mmol/L (3.5-5.1); SODIUM SERUM 141 mmol/L (136-145); UREA NITROGEN, BLOOD 11 mg/dL (7-18)
[2024-09-21] MEDS: ALBUTEROL SULFATE 2.5 MG/0.5 ML NEB SOLUTION NEB ONE (16:25)
[2024-09-21 16:31] LABS: CREATINE KINASE, TOTAL ONLY 53 U/L (39-308); PROTHROMBIN TIME 15.6 SEC (9.4-11.6)
[2024-09-21] MEDS: MethylPREDNISolone SOD SUCC 125 MG/2 ML VIAL IVP ONE (16:33)
[2024-09-21 16:36] LABS: TROPONIN I-HIGH SENSITIVITY 9 ng/L (<76)
[2024-09-21 16:41] VITALS: PULSE 75; RESP 20; O2SAT 97
[2024-09-21 16:59] LABS: B-TYPE NATRIURETIC PEPTIDE 8 pg/mL (0-100)
[2024-09-21] MEDS ORDERED: ONDANSETRON HCL 4 MG/2 ML VIAL IVP PRN (18:30)
[2024-09-21] MEDS ORDERED: ALBUTEROL SULFATE 2.5 MG/0.5 ML NEB SOLUTION NEB PRN (18:30)
[2024-09-21] MEDS ORDERED: ZOLPIDEM TARTRATE 5 MG TABLET PO PRN (18:30)
[2024-09-21] MEDS ORDERED: MORPHINE SULFATE 2 MG/ML SYRINGE IVP PRN (18:30)
[2024-09-21] MEDS ORDERED: MAGNESIUM HYDROXIDE SUSPENSION 30 ML UDCUP PO PRN (18:30)
[2024-09-21] MEDS ORDERED: BISACODYL 10 MG RECTAL RECTAL SUPPOSITORY PR PRN (18:30)
[2024-09-21] MEDS ORDERED: IPRATROPIUM BROMIDE 0.5 MG/2.5 ML NEB SOLUTION NEB PRN (18:30)
[2024-09-21 19:44] LABS: APPEARANCE,URINE CLEAR (CLEAR); BILIRUBIN,URINE NEGATIVE (NEGATIVE); COLOR,URINE LIGHT YELLOW (YELLOW); GLUCOSE, URINE (UA) >=1000 mg/dL (NEGATIVE); KETONES,URINE NEGATIVE (NEGATIVE); LEUKOCYTE ESTERASE ,URINE NEGATIVE (NEGATIVE); NITRATE,URINE NEGATIVE (NEGATIVE); OCCULT BLOOD,URINE NEGATIVE (NEGATIVE); PROTEIN,URINE NEGATIVE (NEGATIVE); SPECIFIC GRAVITIY, URINE 1.037 (1.003-1.030); UROBILINOGEN,URINE <=1.0 mg/dL (<=1.0)
[2024-09-21 20:10] LABS: BACTERIA,URINE Rare /HPF (None Seen); RBC,URINE None Seen /HPF (0-2); WBC,URINE 0-2 /HPF (0-5)
[2024-09-21] MEDS: IPRATROPIUM BROMIDE 0.5 MG/2.5 ML NEB SOLUTION NEB SCH (20:43)
[2024-09-21] MEDS: ALBUTEROL SULFATE 2.5 MG/0.5 ML NEB SOLUTION NEB SCH (20:43)
[2024-09-21 21:12] VITALS: PULSE 83; RESP 18; O2SAT 94
[2024-09-21 21:20] VITALS: PULSE 83; RESP 18; O2SAT 94
[2024-09-21] MEDS: GuaiFENesin SR 600 MG ER TABLET PO SCH (21:49)
[2024-09-21] MEDS: BENZONATATE 100 MG CAPSULE PO SCH (21:49)
[2024-09-21] MEDS: APIXABAN 5 MG TABLET PO SCH (21:50)
[2024-09-21] MEDS: DOCUSATE SODIUM 100 MG CAPSULE PO SCH (21:50)
[2024-09-21] MEDS: GABAPENTIN 300 MG CAPSULE PO SCH (21:50)
[2024-09-21] MEDS ORDERED: DEXTROSE 50%-WATER 25 GM/50 ML SYRINGE IVP PRN (23:45)
[2024-09-22] VITALS (12 sets, daily range): BP systolic 103–134; BP diastolic 64–92; PULSE 62–90; RESP 16–22; TEMP 97.5–98.6; O2SAT 93–100
[2024-09-22] MEDS: MethylPREDNISolone SOD SUCC 125 MG/2 ML VIAL IVP SCH (00:04)
[2024-09-22] MEDS: INSULIN LISPRO 100 UNITS/ML SQ PRN (00:05)
[2024-09-22 05:46] LABS: GLUCOMETER DEV NAME(LOC) 5N.2C; GLUCOSE,POINT OF CARE 171 MG/DL (70-110)
[2024-09-22] MEDS: LEVOTHYROXINE SODIUM 125 MCG TABLET PO SCH (05:50)
[2024-09-22 07:35] LABS: BASOPHILS % (AUTO) 0.2 % (0.0-2.0); EOSINOPHILS % (AUTO) 0 % (1.0-6.0); HEMATOCRIT 41.5 % (41-53); HEMOGLOBIN 13.6 g/dL (13.5-17.5); LYMPHOCYTES # (AUTO) 1.5 K/uL (1.0-4.8); LYMPHOCYTES % (AUTO) 10.6 % (22.0-44.0); MEAN CORPUSCULAR HEMOGLOBIN 26.3 pg (26.0-34.0); MEAN CORPUSCULAR HGB CONC 32.7 G/dL (31.0-37.0); MEAN CORPUSCULAR VOLUME 80 fL (80-100); MONOCYTES # (AUTO) 0.3 K/uL (0.1-1.0); MONOCYTES % (AUTO) 2.2 % (2.0-9.0); NEUTROPHILS # (AUTO) 12.1 K/uL (1.8-7.7); PLATELET COUNT (AUTO) 417 K/uL (150-450); RED BLOOD CELL COUNT(AUTO) 5.16 MIL/uL (4.50-5.90); WHITE BLOOD COUNT (AUTO) 13.9 K/uL (4.5-11.0)
[2024-09-22 07:44] LABS: ANION GAP 13 mmol/L (8-16); CALCIUM, TOTAL 8.5 mg/dL (8.8-10.5); CARBON DIOXIDE 22 mmol/L (22-29); CHLORIDE 102 mmol/L (98-107); CREATININE 0.81 mg/dL (0.60-1.30); GLOMERULAR FILTR. RATE CALC > 60 mL/min (>60); GLUCOSE,RANDOM 180 mg/dL (70-110); POTASSIUM 4.3 mmol/L (3.5-5.1); SODIUM SERUM 137 mmol/L (136-145); UREA NITROGEN, BLOOD 13 mg/dL (7-18)
[2024-09-22] MEDS: TIOTROPIUM BROMIDE 18 MCG/INH HANDIHALER [5] IH SCH (08:43)
[2024-09-22] MEDS: CHOLECALCIFEROL (VIT D3) 1,000 UNITS [25 MCG] TABLET PO SCH (08:45)
[2024-09-22] MEDS: PANTOPRAZOLE SODIUM 40 MG DR TABLET PO SCH (08:45)
[2024-09-22] MEDS: ROSUVASTATIN CALCIUM 10 MG TABLET PO SCH (08:45)
[2024-09-22] MEDS ORDERED: PANTOPRAZOLE SODIUM 40 MG DR TABLET PO SCH (09:00)
[2024-09-22 18:51] LABS: GLUCOMETER DEV NAME(LOC) 5N.2C; GLUCOSE,POINT OF CARE 275 MG/DL (70-110)
[2024-09-22 18:51] LABS: GLUCOMETER DEV NAME(LOC) 5S.2D; GLUCOSE,POINT OF CARE 201 MG/DL (70-110)
[2024-09-22 21:05] LABS: GLUCOMETER DEV NAME(LOC) 5N.2C; GLUCOSE,POINT OF CARE 324 MG/DL (70-110)
[2024-09-23] VITALS (14 sets, daily range): BP systolic 113–130; BP diastolic 63–76; PULSE 62–88; RESP 18–22; TEMP 97.9–98; O2SAT 95–100
[2024-09-23 07:56] LABS: ANION GAP 9 mmol/L (8-16); CALCIUM, TOTAL 8.7 mg/dL (8.8-10.5); CARBON DIOXIDE 26 mmol/L (22-29); CHLORIDE 106 mmol/L (98-107); CREATININE 0.78 mg/dL (0.60-1.30); GLOMERULAR FILTR. RATE CALC > 60 mL/min (>60); GLUCOSE,RANDOM 181 mg/dL (70-110); POTASSIUM 4.2 mmol/L (3.5-5.1); SODIUM SERUM 141 mmol/L (136-145); UREA NITROGEN, BLOOD 13 mg/dL (7-18)
[2024-09-23 07:59] LABS: BASOPHILS % (AUTO) 0.1 % (0.0-2.0); EOSINOPHILS % (AUTO) 0 % (1.0-6.0); HEMOGLOBIN 13.5 g/dL (13.5-17.5); LYMPHOCYTES # (AUTO) 1.3 K/uL (1.0-4.8); MEAN CORPUSCULAR HEMOGLOBIN 25.7 pg (26.0-34.0); MEAN CORPUSCULAR HGB CONC 32.2 G/dL (31.0-37.0); MEAN CORPUSCULAR VOLUME 80 fL (80-100); MONOCYTES # (AUTO) 0.9 K/uL (0.1-1.0); MONOCYTES % (AUTO) 4.2 % (2.0-9.0); NEUTROPHILS # (AUTO) 19.8 K/uL (1.8-7.7); PLATELET COUNT (AUTO) 413 K/uL (150-450); RED BLOOD CELL COUNT(AUTO) 5.26 MIL/uL (4.50-5.90); RED CELL DISTRIBUTION WIDTH 16.1 % (11.5-14.5); WHITE BLOOD COUNT (AUTO) 22.1 K/uL (4.5-11.0)
[2024-09-23 08:05] LABS: NEUTROPHILS % (AUTO) 89.7 % (40.0-70.0)
[2024-09-23 09:50] LABS: GLUCOMETER DEV NAME(LOC) 5S.2D; GLUCOSE,POINT OF CARE 185 MG/DL (70-110)
[2024-09-23 13:21] LABS: GLUCOMETER DEV NAME(LOC) 5N.2C; GLUCOSE,POINT OF CARE 301 MG/DL (70-110)
[2024-09-23] MEDS: MethylPREDNISolone SOD SUCC 125 MG/2 ML VIAL IVP SCH (16:47)
[2024-09-23 19:01] LABS: GLUCOMETER DEV NAME(LOC) 5S.2D; GLUCOSE,POINT OF CARE 196 MG/DL (70-110)
[2024-09-23 20:51] LABS: GLUCOMETER DEV NAME(LOC) 5S.2D; GLUCOSE,POINT OF CARE 240 MG/DL (70-110)
[2024-09-24] VITALS (10 sets, daily range): BP systolic 117–142; BP diastolic 65–85; PULSE 63–85; RESP 16–18; TEMP 97.5–98.4; O2SAT 94–99
[2024-09-24 07:52] LABS: BASOPHILS % (AUTO) 0.3 % (0.0-2.0); EOSINOPHILS % (AUTO) 0 % (1.0-6.0); HEMATOCRIT 43.1 % (41-53); HEMOGLOBIN 13.7 g/dL (13.5-17.5); LYMPHOCYTES # (AUTO) 0.9 K/uL (1.0-4.8); MEAN CORPUSCULAR HEMOGLOBIN 25.5 pg (26.0-34.0); MEAN CORPUSCULAR HGB CONC 31.8 G/dL (31.0-37.0); MEAN CORPUSCULAR VOLUME 80 fL (80-100); MONOCYTES # (AUTO) 0.5 K/uL (0.1-1.0); MONOCYTES % (AUTO) 2.6 % (2.0-9.0); NEUTROPHILS # (AUTO) 17.4 K/uL (1.8-7.7); PLATELET COUNT (AUTO) 404 K/uL (150-450); RED BLOOD CELL COUNT(AUTO) 5.39 MIL/uL (4.50-5.90); RED CELL DISTRIBUTION WIDTH 15.9 % (11.5-14.5); WHITE BLOOD COUNT (AUTO) 18.9 K/uL (4.5-11.0)
[2024-09-24 07:55] LABS: NEUTROPHILS % (AUTO) 92.1 % (40.0-70.0)
[2024-09-24 08:01] LABS: ANION GAP 9 mmol/L (8-16); CALCIUM, TOTAL 8.4 mg/dL (8.8-10.5); CARBON DIOXIDE 26 mmol/L (22-29); CHLORIDE 102 mmol/L (98-107); CREATININE 0.79 mg/dL (0.60-1.30); GLOMERULAR FILTR. RATE CALC > 60 mL/min (>60); GLUCOSE,RANDOM 284 mg/dL (70-110); POTASSIUM 4.1 mmol/L (3.5-5.1); SODIUM SERUM 137 mmol/L (136-145); UREA NITROGEN, BLOOD 13 mg/dL (7-18)
[2024-09-24 10:36] LABS: GLUCOMETER DEV NAME(LOC) 5S.2D; GLUCOSE,POINT OF CARE 233 MG/DL (70-110)
[2024-09-24] MEDS: PredniSONE 10 MG TABLET PO SCH (12:43)
[2024-09-24 14:01] LABS: GLUCOMETER DEV NAME(LOC) 5N.1D; GLUCOSE,POINT OF CARE 297 MG/DL (70-110)
[2024-09-24] MEDS ORDERED: CHOL25TA4 PO (14:13)
[2024-09-24] MEDS ORDERED: DOCU-385 PO (14:33)
[2024-09-24] MEDS ORDERED: GUAIF600 PO (14:34)
[2024-09-24] MEDS ORDERED: PRED-729 PO (14:37)
[2024-09-24] MEDS ORDERED: ALBU2.5V39 NEB (14:39)
[2024-09-24] MEDS ORDERED: INSU100V SQ (14:42)
[2024-09-24] MEDS ORDERED: MAGN-169 PO (14:43)
[2024-09-24 18:26] LABS: GLUCOMETER DEV NAME(LOC) 5S.2D; GLUCOSE,POINT OF CARE 285 MG/DL (70-110)
== END 2024-09-24 21:40 | DRG 190 ==
LOC: EMS 15:14 → EDH 20:29 → 5S 22:30
PROVIDERS: ADMIT Internal Medicine; ATTEND Internal Medicine
DX: J44.1 Chronic obstructive pulmonary disease with (acute) exacerbation (principal); J96.90 Respiratory failure, unspecified, unspecified whether with hypoxia or hypercapnia; Z68.42 Body mass index [BMI] 45.0-49.9, adult; E03.9 Hypothyroidism, unspecified; E11.40 Type 2 diabetes mellitus with diabetic neuropathy, unspecified; I10 Essential (primary) hypertension; E78.00 Pure hypercholesterolemia, unspecified; F10.20 Alcohol dependence, uncomplicated; E66.01 Morbid (severe) obesity due to excess calories; Z88.6 Allergy status to analgesic agent; Z88.8 Allergy status to other drugs, medicaments and biological substances; Z91.013 Allergy to seafood; Z79.01 Long term (current) use of anticoagulants; Z79.899 Other long term (current) drug therapy; Z86.711 Personal history of pulmonary embolism
CPT/HCPCS: 71045; 80048; 81001; 82550; 82962; 83880; 84484; 85025; 85610; 85730; 93005; 94640; 96374; 99285; J2919; 36415-L1; 36415-TC; J7512; J7613; Z7610

== ENCOUNTER 2024-10-04 16:57 | Inpatient (IN) | payer OTHER ==
[~2024-10-04] VITALS: Ht 170.2 cm; Wt 136.4 kg
[~2024-10-04 16:57] MED LIST changes: +DOCU-385 PO; -FLUT1BLS10 IH; +INSU100V SQ; +MAGN-169 PO; -PRED-554 PO; +PRED-729 PO
[2024-10-04 19:04] LABS: BASOPHILS % (AUTO) 0.6 % (0.0-2.0); EOSINOPHILS % (AUTO) 0 % (1.0-6.0); HEMOGLOBIN 13.2 g/dL (13.5-17.5); LYMPHOCYTES # (AUTO) 2.7 K/uL (1.0-4.8); MEAN CORPUSCULAR HEMOGLOBIN 25.3 pg (26.0-34.0); MEAN CORPUSCULAR HGB CONC 31.3 G/dL (31.0-37.0); MEAN CORPUSCULAR VOLUME 81 fL (80-100); MONOCYTES # (AUTO) 2.2 K/uL (0.1-1.0); NEUTROPHILS # (AUTO) 22.2 K/uL (1.8-7.7); NEUTROPHILS % (AUTO) 81.4 % (40.0-70.0); PLATELET COUNT (AUTO) 311 K/uL (150-450); RED BLOOD CELL COUNT(AUTO) 5.21 MIL/uL (4.50-5.90); RED CELL DISTRIBUTION WIDTH 16.4 % (11.5-14.5); WHITE BLOOD COUNT (AUTO) 27.3 K/uL (4.5-11.0)
[2024-10-04 19:12] LABS: ANION GAP 11 mmol/L (8-16); CALCIUM, TOTAL 8.9 mg/dL (8.8-10.5); CARBON DIOXIDE 25 mmol/L (22-29); CHLORIDE 107 mmol/L (98-107); CREATININE 0.85 mg/dL (0.60-1.30); GLOMERULAR FILTR. RATE CALC > 60 mL/min (>60); GLUCOSE,RANDOM 102 mg/dL (70-110); SODIUM SERUM 143 mmol/L (136-145); UREA NITROGEN, BLOOD 12 mg/dL (7-18)
[2024-10-04 19:18] LABS: ALBUMIN 3.3 g/dL (3.4-5.0); BILIRUBIN,DIRECT 0.1 mg/dL (0.00-0.20); BILIRUBIN,TOTAL 0.3 mg/dL (0.1-1.0)
[2024-10-04 19:27] LABS: TROPONIN I-HIGH SENSITIVITY 13 ng/L (<76)
[2024-10-04] MEDS ORDERED: 0.9% SODIUM CHLORIDE 10 ML SYRINGE IVP PRN (20:30)
[2024-10-04] MEDS: SODIUM CHLORIDE 0.9% 500 ML IV ONE (20:42)
[2024-10-04] MEDS: CefTRIAXone 1 GM/DEXTROSE 50 ML IV ONE (20:43)
[2024-10-04 20:49] LABS: PROTHROMBIN TIME 10.9 SEC (9.4-11.6)
[2024-10-04 20:55] LABS: LACTIC ACID 2.5 mmol/L (0.4-2.0)
[2024-10-04] MEDS ORDERED: ALBUTEROL SULFATE 2.5 MG/0.5 ML NEB SOLUTION NEB PRN (21:30)
[2024-10-04] MEDS ORDERED: IPRATROPIUM BROMIDE 0.5 MG/2.5 ML NEB SOLUTION NEB PRN (21:30)
[2024-10-04] MEDS: AZITHROMYCIN 500 MG/NS 250 ML IV SCH (22:22)
[2024-10-04 23:00] VITALS: BP 147/88; PULSE 70; RESP 18; TEMP 97.9; O2SAT 100
[2024-10-04] MEDS: MethylPREDNISolone SOD SUCC 125 MG/2 ML VIAL IVP SCH (23:27)
[2024-10-05] VITALS (12 sets, daily range): BP systolic 110–119; BP diastolic 62–75; PULSE 63–81; RESP 18–20; TEMP 97.3–98; O2SAT 93–99
[2024-10-05] MEDS: ALBUTEROL SULFATE 2.5 MG/0.5 ML NEB SOLUTION NEB SCH (02:00)
[2024-10-05] MEDS: IPRATROPIUM BROMIDE 0.5 MG/2.5 ML NEB SOLUTION NEB SCH (02:00)
[2024-10-05 07:33] LABS: BASOPHILS % (AUTO) 0.2 % (0.0-2.0); EOSINOPHILS % (AUTO) 0 % (1.0-6.0); HEMATOCRIT 40.8 % (41-53); LYMPHOCYTES # (AUTO) 1.2 K/uL (1.0-4.8); LYMPHOCYTES % (AUTO) 6.3 % (22.0-44.0); MEAN CORPUSCULAR HEMOGLOBIN 25.4 pg (26.0-34.0); MEAN CORPUSCULAR HGB CONC 31.8 G/dL (31.0-37.0); MEAN CORPUSCULAR VOLUME 80 fL (80-100); MONOCYTES # (AUTO) 0.4 K/uL (0.1-1.0); MONOCYTES % (AUTO) 2.4 % (2.0-9.0); NEUTROPHILS # (AUTO) 17.2 K/uL (1.8-7.7); PLATELET COUNT (AUTO) 327 K/uL (150-450); RED BLOOD CELL COUNT(AUTO) 5.11 MIL/uL (4.50-5.90); RED CELL DISTRIBUTION WIDTH 16.2 % (11.5-14.5); WHITE BLOOD COUNT (AUTO) 18.8 K/uL (4.5-11.0)
[2024-10-05 07:46] LABS: ANION GAP 9 mmol/L (8-16); CALCIUM, TOTAL 8.2 mg/dL (8.8-10.5); CARBON DIOXIDE 25 mmol/L (22-29); CHLORIDE 107 mmol/L (98-107); CREATININE 0.71 mg/dL (0.60-1.30); GLOMERULAR FILTR. RATE CALC > 60 mL/min (>60); GLUCOSE,RANDOM 162 mg/dL (70-110); POTASSIUM 4.4 mmol/L (3.5-5.1); SODIUM SERUM 141 mmol/L (136-145); UREA NITROGEN, BLOOD 9 mg/dL (7-18)
[2024-10-05 07:55] LABS: NEUTROPHILS % (AUTO) 91.1 % (40.0-70.0)
[2024-10-05] MEDS: GuaiFENesin SR 600 MG ER TABLET PO SCH (08:24)
[2024-10-05] MEDS: APIXABAN 5 MG TABLET PO SCH (08:24)
[2024-10-05] MEDS: ROSUVASTATIN CALCIUM 10 MG TABLET PO SCH (08:24)
[2024-10-05] MEDS: BENZONATATE 100 MG CAPSULE PO SCH (08:24)
[2024-10-05] MEDS: GABAPENTIN 300 MG CAPSULE PO SCH (08:25)
[2024-10-05] MEDS: CHOLECALCIFEROL (VIT D3) 2,000 UNITS [50 MCG] TABLET PO SCH (09:56)
[2024-10-05] MEDS: CefTRIAXone 1 GM/DEXTROSE 50 ML IV SCH (20:26)
[2024-10-05] MEDS ORDERED: DEXTROSE 50%-WATER 25 GM/50 ML SYRINGE IVP PRN (21:00)
[2024-10-05] MEDS: INSULIN LISPRO 100 UNITS/ML SQ PRN (21:53)
[2024-10-06] VITALS (7 sets, daily range): BP systolic 114–127; BP diastolic 59–80; PULSE 62–75; RESP 18–20; TEMP 97.5–98; O2SAT 94–98
[2024-10-06 06:25] LABS: GLUCOMETER DEV NAME(LOC) 5N.1D; GLUCOSE,POINT OF CARE 242 MG/DL (70-110)
[2024-10-06 06:37] LABS: BASOPHILS % (AUTO) 0.1 % (0.0-2.0); EOSINOPHILS % (AUTO) 0 % (1.0-6.0); HEMATOCRIT 40.5 % (41-53); HEMOGLOBIN 13.1 g/dL (13.5-17.5); LYMPHOCYTES # (AUTO) 1.3 K/uL (1.0-4.8); LYMPHOCYTES % (AUTO) 5.8 % (22.0-44.0); MEAN CORPUSCULAR HEMOGLOBIN 25.9 pg (26.0-34.0); MEAN CORPUSCULAR HGB CONC 32.4 G/dL (31.0-37.0); MEAN CORPUSCULAR VOLUME 80 fL (80-100); MONOCYTES # (AUTO) 0.5 K/uL (0.1-1.0); NEUTROPHILS # (AUTO) 20.6 K/uL (1.8-7.7); PLATELET COUNT (AUTO) 317 K/uL (150-450); RED BLOOD CELL COUNT(AUTO) 5.07 MIL/uL (4.50-5.90); RED CELL DISTRIBUTION WIDTH 16.3 % (11.5-14.5); WHITE BLOOD COUNT (AUTO) 22.4 K/uL (4.5-11.0)
[2024-10-06 06:40] LABS: ANION GAP 8 mmol/L (8-16); CALCIUM, TOTAL 8.8 mg/dL (8.8-10.5); CARBON DIOXIDE 27 mmol/L (22-29); CHLORIDE 108 mmol/L (98-107); CREATININE 0.75 mg/dL (0.60-1.30); GLOMERULAR FILTR. RATE CALC > 60 mL/min (>60); GLUCOSE,RANDOM 192 mg/dL (70-110); POTASSIUM 4.2 mmol/L (3.5-5.1); SODIUM SERUM 143 mmol/L (136-145); UREA NITROGEN, BLOOD 12 mg/dL (7-18)
[2024-10-06 06:56] LABS: NEUTROPHILS % (AUTO) 92.1 % (40.0-70.0)
[2024-10-06 11:46] LABS: GLUCOMETER DEV NAME(LOC) 5S.2D; GLUCOSE,POINT OF CARE 194 MG/DL (70-110)
[2024-10-06 11:46] LABS: GLUCOMETER DEV NAME(LOC) 5S.2D; GLUCOSE,POINT OF CARE 279 MG/DL (70-110)
[2024-10-06] MEDS ORDERED: EMPA25TA3 PO (16:39)
[2024-10-06] MEDS ORDERED: GABA-1201 PO (16:40)
[2024-10-06] MEDS ORDERED: INSLAN SQ (16:41)
[2024-10-06] MEDS ORDERED: XALA2.5OS OU (16:42)
[2024-10-06] MEDS ORDERED: BENZ1LOZ50 PO (16:48)
[2024-10-06] MEDS ORDERED: NALO4SPR NASAL (16:49)
[2024-10-06] MEDS ORDERED: PRED-554 PO (16:53)
[2024-10-06] MEDS ORDERED: TIRZ10PE3 SQ (16:54)
[2024-10-06] MEDS ORDERED: MAGN-169 PO (16:55)
[2024-10-06] MEDS ORDERED: PredniSONE 20 MG TABLET PO ONE (17:00)
[2024-10-06] MEDS ORDERED: GUAIF600 PO (17:35)
[2024-10-06] MEDS ORDERED: LEVO750T68 PO (17:45)
[2024-10-06] MEDS: PredniSONE 20 MG TABLET PO ONE (18:10)
[2024-10-06 18:51] LABS: GLUCOMETER DEV NAME(LOC) 5N.1D; GLUCOSE,POINT OF CARE 247 MG/DL (70-110)
== END 2024-10-06 19:30 | DRG 871 ==
LOC: EMS 16:57 → EDH 21:16 → 5S 22:40
PROVIDERS: ADMIT Internal Medicine; ATTEND Internal Medicine
DX: A41.9 Sepsis, unspecified organism (principal); J96.21 Acute and chronic respiratory failure with hypoxia; J44.1 Chronic obstructive pulmonary disease with (acute) exacerbation; Z68.41 Body mass index [BMI] 40.0-44.9, adult; F10.20 Alcohol dependence, uncomplicated; J98.4 Other disorders of lung; E03.9 Hypothyroidism, unspecified; E11.9 Type 2 diabetes mellitus without complications; E78.00 Pure hypercholesterolemia, unspecified; B18.2 Chronic viral hepatitis C; E66.01 Morbid (severe) obesity due to excess calories; I10 Essential (primary) hypertension; H40.89 Other specified glaucoma; G89.29 Other chronic pain; Z86.711 Personal history of pulmonary embolism; Z88.6 Allergy status to analgesic agent
CPT/HCPCS: 71045; 80048; 80076; 82962; 83605; 83880; 84145; 84484; 85025; 85610; 87040; 93005; 94640; 96365; 99291; J0456; J0696; J2919; J7030; 36415-L1; 36415-TC; J7613

== ENCOUNTER 2024-11-04 14:30 | Inpatient (IN) | payer OTHER ==
[~2024-11-04] VITALS: Ht 170.2 cm; Wt 113.6 kg
[~2024-11-04 14:30] MED LIST changes: -BENZ-227 PO; +BENZ1LOZ50 PO; +EMPA25TA3 PO; -GABA-1181 PO; +GABA-1201 PO; +INSLAN SQ; -INSU100V SQ; +LEVO750T68 PO; +NALO4SPR NASAL; +PRED-554 PO; -PRED-729 PO; -SEMA2PEN SQ; +TIRZ10PE3 SQ; +XALA2.5OS OU
[2024-11-04] MEDS ORDERED: 0.9% SODIUM CHLORIDE 5 ML NEB SOLUTION NEB ONE ×2 (16:23→20:31)
[2024-11-04 16:25] VITALS: PULSE 75; RESP 20; O2SAT 97
[2024-11-04] MEDS: ALBUTEROL SULFATE 2.5 MG/0.5 ML 5 ML NEB SOLUTION NEB ONE (16:28)
[2024-11-04] MEDS: IPRATROPIUM BROMIDE 0.5 MG/2.5 ML NEB SOLUTION NEB ONE (16:28)
[2024-11-04] MEDS ORDERED: DEXTROSE 50%-WATER 25 GM/50 ML SYRINGE IVP PRN (16:45)
[2024-11-04] MEDS ORDERED: ONDANSETRON HCL 4 MG/2 ML VIAL IVP PRN (16:45)
[2024-11-04] MEDS ORDERED: MAGNESIUM HYDROXIDE SUSPENSION 30 ML UDCUP PO PRN (16:45)
[2024-11-04] MEDS ORDERED: ZOLPIDEM TARTRATE 5 MG TABLET PO PRN (16:45)
[2024-11-04 16:47] LABS: BASOPHILS % (AUTO) 0.5 % (0.0-2.0); EOSINOPHILS % (AUTO) 3.5 % (1.0-6.0); HEMATOCRIT 43.3 % (41-53); HEMOGLOBIN 13.8 g/dL (13.5-17.5); LYMPHOCYTES # (AUTO) 2.8 K/uL (1.0-4.8); MEAN CORPUSCULAR HEMOGLOBIN 25.7 pg (26.0-34.0); MEAN CORPUSCULAR HGB CONC 31.9 G/dL (31.0-37.0); MEAN CORPUSCULAR VOLUME 81 fL (80-100); MONOCYTES # (AUTO) 0.9 K/uL (0.1-1.0); MONOCYTES % (AUTO) 7.9 % (2.0-9.0); NEUTROPHILS # (AUTO) 7.1 K/uL (1.8-7.7); NEUTROPHILS % (AUTO) 63.1 % (40.0-70.0); PLATELET COUNT (AUTO) 406 K/uL (150-450); RED BLOOD CELL COUNT(AUTO) 5.38 MIL/uL (4.50-5.90); RED CELL DISTRIBUTION WIDTH 17.2 % (11.5-14.5); WHITE BLOOD COUNT (AUTO) 11.3 K/uL (4.5-11.0)
[2024-11-04] MEDS: MethylPREDNISolone SOD SUCC 125 MG/2 ML VIAL IVP ONE (16:52)
[2024-11-04 16:57] LABS: ANION GAP 6 mmol/L (8-16); CALCIUM, TOTAL 9.1 mg/dL (8.8-10.5); CARBON DIOXIDE 28 mmol/L (22-29); CHLORIDE 106 mmol/L (98-107); CREATININE 0.93 mg/dL (0.60-1.30); GLOMERULAR FILTR. RATE CALC > 60 mL/min (>60); GLUCOSE,RANDOM 72 mg/dL (70-110); POTASSIUM 3.8 mmol/L (3.5-5.1); SODIUM SERUM 140 mmol/L (136-145); UREA NITROGEN, BLOOD 8 mg/dL (7-18)
[2024-11-04 17:05] LABS: TROPONIN I-HIGH SENSITIVITY 10 ng/L (<76)
[2024-11-04 17:15] LABS: COVID AG,FIA SOURCE NASAL SWAB
[2024-11-04 17:25] VITALS: PULSE 66; RESP 20; O2SAT 99
[2024-11-04 17:43] LABS: SARS-COV2 (COVID) ANTIGEN,FIA Negative (Negative)
[2024-11-04 17:44] LABS: INFLUENZA TYPE A NEGATIVE FOR TYPE A (NEGATIVE); INFLUENZA TYPE B NEGATIVE FOR TYPE B (NEGATIVE)
[2024-11-04 20:15] VITALS: PULSE 66; RESP 16; O2SAT 96
[2024-11-04] MEDS: ALBUTEROL SULFATE 2.5 MG/0.5 ML NEB SOLUTION NEB PRN (20:32)
[2024-11-04 20:40] VITALS: PULSE 66; RESP 16; O2SAT 96
[2024-11-04 20:55] VITALS: PULSE 69; RESP 18; O2SAT 99
[2024-11-04] MEDS: DOCUSATE SODIUM 100 MG CAPSULE PO SCH (21:00)
[2024-11-04] MEDS: MethylPREDNISolone SOD SUCC 125 MG/2 ML VIAL IVP SCH (22:00)
[2024-11-04 22:27] VITALS: BP 101/62; PULSE 105; RESP 19; TEMP 97.7; O2SAT 92
[2024-11-04] MEDS: INSULIN LISPRO 100 UNITS/ML SQ PRN (22:46)
[2024-11-04] MEDS: APIXABAN 5 MG TABLET PO SCH (23:23)
[2024-11-05] MEDS ORDERED: HEPARIN SODIUM,PORCINE 5,000 UNITS/ML VIAL SQ SCH
[2024-11-05 04:07] VITALS: BP 120/72; PULSE 103; RESP 18; TEMP 97.9; O2SAT 94
[2024-11-05 04:50] VITALS: PULSE 98; RESP 18; O2SAT 93
[2024-11-05 05:00] VITALS: PULSE 100; RESP 18; O2SAT 94
[2024-11-05 05:16] LABS: GLUCOMETER DEV NAME(LOC) 6N.2B; GLUCOSE,POINT OF CARE 216 MG/DL (70-110)
[2024-11-05 06:00] LABS: GLUCOMETER DEV NAME(LOC) 6S.2; GLUCOSE,POINT OF CARE 161 MG/DL (70-110)
[2024-11-05 07:49] VITALS: BP 114/85; PULSE 99; RESP 18; TEMP 98.1; O2SAT 90
[2024-11-05] MEDS: MULTIVITAMINS WITH MINERALS, THERAPEUTIC TABLET PO SCH (08:42)
[2024-11-05] MEDS: FAMOTIDINE 20 MG TABLET PO SCH (08:42)
[2024-11-05] MEDS: GABAPENTIN 300 MG CAPSULE PO SCH (11:42)
[2024-11-05 15:47] VITALS: BP 93/83; PULSE 96; RESP 18; TEMP 97.7; O2SAT 96
[2024-11-05 17:21] LABS: GLUCOMETER DEV NAME(LOC) 6N.2B; GLUCOSE,POINT OF CARE 171 MG/DL (70-110)
[2024-11-05 18:40] LABS: GLUCOMETER DEV NAME(LOC) 6S.2; GLUCOSE,POINT OF CARE 190 MG/DL (70-110)
[2024-11-05 20:00] VITALS: BP 119/76; PULSE 82; RESP 20; TEMP 97.5; O2SAT 97
[2024-11-06 04:09] VITALS: BP 118/80; PULSE 78; RESP 19; TEMP 97.8; O2SAT 95
[2024-11-06] MEDS: LEVOTHYROXINE SODIUM 125 MCG TABLET PO SCH (06:02)
[2024-11-06 06:20] LABS: GLUCOMETER DEV NAME(LOC) 6S.2; GLUCOSE,POINT OF CARE 160 MG/DL (70-110)
[2024-11-06 08:43] VITALS: BP 113/75; PULSE 74; RESP 20; TEMP 97.7; O2SAT 98
[2024-11-06 13:16] LABS: GLUCOMETER DEV NAME(LOC) 6N.2B; GLUCOSE,POINT OF CARE 177 MG/DL (70-110)
[2024-11-06 13:16] LABS: GLUCOMETER DEV NAME(LOC) 6N.2B; GLUCOSE,POINT OF CARE 188 MG/DL (70-110)
[2024-11-06 20:00] VITALS: BP 123/73; PULSE 65; RESP 19; TEMP 97.7; O2SAT 95
[2024-11-06 20:05] LABS: GLUCOMETER DEV NAME(LOC) 6S.1D; GLUCOSE,POINT OF CARE 170 MG/DL (70-110)
[2024-11-06 21:21] LABS: GLUCOMETER DEV NAME(LOC) 6S.1D; GLUCOSE,POINT OF CARE 290 MG/DL (70-110)
[2024-11-07 03:57] VITALS: BP 116/71; PULSE 66; RESP 19; TEMP 98.2; O2SAT 97
[2024-11-07 08:06] LABS: GLUCOMETER DEV NAME(LOC) 6S.1D; GLUCOSE,POINT OF CARE 188 MG/DL (70-110)
[2024-11-07 08:48] VITALS: BP 115/74; PULSE 53; RESP 18; TEMP 97.9; O2SAT 96
[2024-11-07] MEDS: DiphenhydrAMINE HCL 50 MG/ML VIAL IVP ONE (13:31)
[2024-11-07] MEDS: FAMOTIDINE 20 MG/2 ML VIAL IVP ONE (13:48)
[2024-11-07 17:56] LABS: GLUCOMETER DEV NAME(LOC) 6S.2; GLUCOSE,POINT OF CARE 203 MG/DL (70-110)
[2024-11-07 19:56] LABS: GLUCOMETER DEV NAME(LOC) 6S.1D; GLUCOSE,POINT OF CARE 228 MG/DL (70-110)
== END 2024-11-07 19:25 | DRG 189 ==
LOC: EMS 14:30 → EDH 16:33 → 6S 21:50
PROVIDERS: ADMIT Internal Medicine; ATTEND Internal Medicine
DX: J96.21 Acute and chronic respiratory failure with hypoxia (principal); J44.1 Chronic obstructive pulmonary disease with (acute) exacerbation; E03.9 Hypothyroidism, unspecified; H40.9 Unspecified glaucoma; Z20.822 Contact with and (suspected) exposure to COVID-19; E78.00 Pure hypercholesterolemia, unspecified; E11.9 Type 2 diabetes mellitus without complications; I10 Essential (primary) hypertension; B19.20 Unspecified viral hepatitis C without hepatic coma; G89.29 Other chronic pain; E66.01 Morbid (severe) obesity due to excess calories; Z68.39 Body mass index [BMI] 39.0-39.9, adult; Z79.4 Long term (current) use of insulin; Z99.81 Dependence on supplemental oxygen; Z86.711 Personal history of pulmonary embolism; Z88.6 Allergy status to analgesic agent; Z91.018 Allergy to other foods; Z79.899 Other long term (current) drug therapy
CPT/HCPCS: 71045; 71250; 80048; 82962; 83880; 84443; 84484; 85025; 87340; 87804; 93005; 94640; 96374; 96376; 99285; J1200; J2919; J3490; 36415-L1; 36415-TC; J7613

== ENCOUNTER 2024-12-18 13:07 | Inpatient (IN) | payer OTHER ==
[~2024-12-18] VITALS: Ht 170.2 cm; Wt 130.6 kg
[~2024-12-18 13:07] MED LIST changes: -BENZ1LOZ50 PO; -DOCU-385 PO; -GUAIF600 PO; -LEVO750T68 PO
[2024-12-18 13:38] LABS: PLATELET COUNT (AUTO) 351 K/uL (150-450); RED BLOOD CELL COUNT(AUTO) 5.36 MIL/uL (4.50-5.90); RED CELL DISTRIBUTION WIDTH 16.9 % (11.5-14.5); WHITE BLOOD COUNT (AUTO) 8.0 K/uL (4.5-11.0)
[2024-12-18 13:46] LABS: CALCIUM, TOTAL 8.8 mg/dL (8.8-10.5); CREATININE 0.70 mg/dL (0.60-1.30); GLOMERULAR FILTR. RATE CALC > 60 mL/min (>60); GLUCOSE,RANDOM 78 mg/dL (70-110); SODIUM SERUM 138 mmol/L (136-145); UREA NITROGEN, BLOOD 8 mg/dL (7-18)
[2024-12-18 13:51] LABS: CREATINE KINASE, TOTAL ONLY 87 U/L (39-308)
[2024-12-18 13:54] LABS: TROPONIN I-HIGH SENSITIVITY 18 ng/L (<76)
[2024-12-18] MEDS: AZITHROMYCIN 500 MG/NS 250 ML IV ONE (14:18)
[2024-12-18] MEDS: CefTRIAXone 1 GM/DEXTROSE 50 ML IV ONE (14:19)
[2024-12-18] MEDS ORDERED: ONDANSETRON HCL 4 MG/2 ML VIAL IVP PRN (14:30)
[2024-12-18] MEDS ORDERED: IPRATROPIUM BROMIDE 0.5 MG/2.5 ML NEB SOLUTION NEB PRN (14:30)
[2024-12-18] MEDS ORDERED: ALBUTEROL SULFATE 2.5 MG/0.5 ML NEB SOLUTION NEB PRN ×2 (14:30→22:00)
[2024-12-18] MEDS ORDERED: ACETAMINOPHEN 325 MG TABLET PO PRN (14:30)
[2024-12-18] MEDS: ALBUTEROL SULFATE 2.5 MG/0.5 ML NEB SOLUTION NEB ONE (14:38)
[2024-12-18 14:39] VITALS: PULSE 82; RESP 21; O2SAT 94
[2024-12-18] MEDS: IPRATROPIUM BROMIDE 0.5 MG/2.5 ML NEB SOLUTION NEB ONE (14:39)
[2024-12-18 14:54] VITALS: PULSE 85; RESP 20; O2SAT 91
[2024-12-18] MEDS: HEPARIN SODIUM,PORCINE 5,000 UNITS/ML VIAL SQ SCH (15:15)
[2024-12-18 18:42] LABS: APPEARANCE,URINE CLEAR (CLEAR); GLUCOSE, URINE (UA) 70-100 mg/dL (NEGATIVE); LEUKOCYTE ESTERASE ,URINE NEGATIVE (NEGATIVE); NITRATE,URINE NEGATIVE (NEGATIVE); OCCULT BLOOD,URINE NEGATIVE (NEGATIVE); SPECIFIC GRAVITIY, URINE 1.011 (1.003-1.030); SQUAMOUS EPITHELIAL CELL,UR Rare /LPF (None Seen)
[2024-12-18 20:10] VITALS: BP 113/77; PULSE 96; RESP 18; TEMP 98.1; O2SAT 91
[2024-12-18] MEDS: DOCUSATE SODIUM 100 MG CAPSULE PO SCH (21:00)
[2024-12-18] MEDS ORDERED: DEXTROSE 50%-WATER 25 GM/50 ML SYRINGE IVP PRN (22:00)
[2024-12-18] MEDS ORDERED: LEVALBUTEROL TARTRATE HFA 45 MCG/PUFF 15 GM INHALER IH PRN (22:00)
[2024-12-18] MEDS ORDERED: MAGNESIUM HYDROXIDE SUSPENSION 30 ML UDCUP PO PRN (22:00)
[2024-12-18 22:50] LABS: TROPONIN I-HIGH SENSITIVITY 7 ng/L (<76)
[2024-12-19 05:09] VITALS: BP 108/73; PULSE 73; RESP 20; TEMP 97.5; O2SAT 97
[2024-12-19] MEDS: LEVOTHYROXINE SODIUM 125 MCG TABLET PO SCH (06:03)
[2024-12-19] MEDS: INSULIN LISPRO 100 UNITS/ML SQ PRN (06:05)
[2024-12-19 06:57] LABS: CALCIUM, TOTAL 9.2 mg/dL (8.8-10.5); CREATININE 0.70 mg/dL (0.60-1.30); GLOMERULAR FILTR. RATE CALC > 60 mL/min (>60); GLUCOSE,RANDOM 142 mg/dL (70-110); PLATELET COUNT (AUTO) 361 K/uL (150-450); RED BLOOD CELL COUNT(AUTO) 5.45 MIL/uL (4.50-5.90); RED CELL DISTRIBUTION WIDTH 17.0 % (11.5-14.5); SODIUM SERUM 138 mmol/L (136-145); UREA NITROGEN, BLOOD 7 mg/dL (7-18); WHITE BLOOD COUNT (AUTO) 16.6 K/uL (4.5-11.0)
[2024-12-19 07:35] LABS: GLUCOMETER DEV NAME(LOC) 6S.2; GLUCOSE,POINT OF CARE 148 MG/DL (70-110)
[2024-12-19 07:41] VITALS: BP 111/81; PULSE 79; RESP 18; TEMP 97.5; O2SAT 100
[2024-12-19] MEDS: CHOLECALCIFEROL (VIT D3) 2,000 UNITS [50 MCG] TABLET PO SCH (08:17)
[2024-12-19] MEDS: PANTOPRAZOLE SODIUM 40 MG DR TABLET PO SCH (08:18)
[2024-12-19] MEDS: EMPAGLIFLOZIN 25 MG TABLET PO SCH (08:18)
[2024-12-19] MEDS: GABAPENTIN 400 MG CAPSULE PO SCH (08:18)
[2024-12-19] MEDS: ROSUVASTATIN CALCIUM 10 MG TABLET PO SCH (08:19)
[2024-12-19] MEDS: APIXABAN 5 MG TABLET PO SCH (08:19)
[2024-12-19] MEDS: FAMOTIDINE 20 MG/2 ML VIAL IVP SCH (08:23)
[2024-12-19] MEDS: TIOTROPIUM BROMIDE 18 MCG/INH HANDIHALER [5] IH SCH (08:23)
[2024-12-19 15:26] LABS: GLUCOMETER DEV NAME(LOC) 6S.2; GLUCOSE,POINT OF CARE 196 MG/DL (70-110)
[2024-12-19 19:29] VITALS: BP 122/73; PULSE 82; RESP 18; TEMP 97.9; O2SAT 95
[2024-12-19] MEDS: LATANOPROST 0.005% 2.5 ML OPHTHALMIC SOLUTION OU SCH (21:04)
[2024-12-19] MEDS: INSULIN GLARGINE,HUM.REC.ANLOG 100 UNITS/ML SQ SCH (21:12)
[2024-12-20 05:09] VITALS: BP 102/64; PULSE 66; RESP 18; TEMP 97.5; O2SAT 93
[2024-12-20 05:55] LABS: GLUCOMETER DEV NAME(LOC) 6S.1D; GLUCOSE,POINT OF CARE 191 MG/DL (70-110)
[2024-12-20 06:21] LABS: GLUCOMETER DEV NAME(LOC) 6S.2; GLUCOSE,POINT OF CARE 137 MG/DL (70-110)
[2024-12-20 07:30] LABS: GLUCOMETER DEV NAME(LOC) 6N.2C; GLUCOSE,POINT OF CARE 256 MG/DL (70-110)
[2024-12-20 07:51] LABS: PLATELET COUNT (AUTO) 371 K/uL (150-450); RED BLOOD CELL COUNT(AUTO) 5.47 MIL/uL (4.50-5.90); RED CELL DISTRIBUTION WIDTH 17.4 % (11.5-14.5); WHITE BLOOD COUNT (AUTO) 23.9 K/uL (4.5-11.0)
[2024-12-20 08:00] LABS: CALCIUM, TOTAL 8.7 mg/dL (8.8-10.5); CREATININE 0.79 mg/dL (0.60-1.30); GLOMERULAR FILTR. RATE CALC > 60 mL/min (>60); GLUCOSE,RANDOM 114 mg/dL (70-110); SODIUM SERUM 140 mmol/L (136-145); UREA NITROGEN, BLOOD 13 mg/dL (7-18)
[2024-12-20 08:26] VITALS: BP 114/68; PULSE 63; RESP 18; TEMP 97.7; O2SAT 98
[2024-12-20 17:51] LABS: GLUCOMETER DEV NAME(LOC) 6S.2; GLUCOSE,POINT OF CARE 170 MG/DL (70-110)
[2024-12-20 17:51] LABS: GLUCOMETER DEV NAME(LOC) 6S.2; GLUCOSE,POINT OF CARE 158 MG/DL (70-110)
[2024-12-20 19:30] VITALS: BP 131/90; PULSE 63; RESP 18; TEMP 97.5; O2SAT 97
[2024-12-21 04:40] VITALS: BP 112/77; PULSE 57; RESP 18; TEMP 97.5; O2SAT 96
[2024-12-21 06:26] LABS: GLUCOMETER DEV NAME(LOC) 6N.2C; GLUCOSE,POINT OF CARE 137 MG/DL (70-110)
[2024-12-21 07:31] VITALS: BP 112/71; PULSE 67; RESP 18; TEMP 98.2; O2SAT 98
[2024-12-21 12:21] LABS: GLUCOMETER DEV NAME(LOC) 6S.1D; GLUCOSE,POINT OF CARE 205 MG/DL (70-110)
[2024-12-21 15:51] LABS: GLUCOMETER DEV NAME(LOC) 6N.2C; GLUCOSE,POINT OF CARE 168 MG/DL (70-110)
[2024-12-21 20:21] LABS: GLUCOMETER DEV NAME(LOC) 6N.2C; GLUCOSE,POINT OF CARE 139 MG/DL (70-110)
== END 2024-12-21 18:40 | DRG 191 ==
LOC: EMS 13:20 → EDH 14:25 → 6N 20:13
PROVIDERS: ADMIT Internal Medicine; ATTEND Internal Medicine
DX: J44.1 Chronic obstructive pulmonary disease with (acute) exacerbation (principal); J45.901 Unspecified asthma with (acute) exacerbation; J96.11 Chronic respiratory failure with hypoxia; E11.9 Type 2 diabetes mellitus without complications; E66.01 Morbid (severe) obesity due to excess calories; T38.0X5A Adverse effect of glucocorticoids and synthetic analogues, initial encounter; E03.9 Hypothyroidism, unspecified; E78.00 Pure hypercholesterolemia, unspecified; G89.4 Chronic pain syndrome; I10 Essential (primary) hypertension; F10.20 Alcohol dependence, uncomplicated; Y90.9 Presence of alcohol in blood, level not specified; Z68.42 Body mass index [BMI] 45.0-49.9, adult; Z79.01 Long term (current) use of anticoagulants; Z88.6 Allergy status to analgesic agent; Z88.1 Allergy status to other antibiotic agents; Z91.02 Food additives allergy status; Z91.013 Allergy to seafood; Z79.4 Long term (current) use of insulin
CPT/HCPCS: 71045; 80048; 81001; 82550; 82962; 83735; 83880; 84484; 85025; 85379; 93005; 94640; 96365; 96368; 96372; 96375; 99285; J0456; J0696; J1644; J1815; J2919; J3490; 36415-L1; 36415-TC; J7613

== ENCOUNTER 2025-01-12 13:42 | Inpatient (IN) | payer OTHER ==
[~2025-01-12] VITALS: Ht 180.3 cm; Wt 118.8 kg
[2025-01-12 14:41] LABS: GLUCOMETER DEV NAME(LOC) ERT.7; GLUCOSE,POINT OF CARE 89 MG/DL (70-110)
[2025-01-12 14:56] LABS: PLATELET COUNT (AUTO) 429 K/uL (150-450); RED BLOOD CELL COUNT(AUTO) 5.49 MIL/uL (4.50-5.90); RED CELL DISTRIBUTION WIDTH 16.9 % (11.5-14.5); WHITE BLOOD COUNT (AUTO) 7.5 K/uL (4.5-11.0)
[2025-01-12 15:07] LABS: CALCIUM, TOTAL 8.4 mg/dL (8.8-10.5); CREATININE 0.89 mg/dL (0.60-1.30); GLOMERULAR FILTR. RATE CALC > 60 mL/min (>60); GLUCOSE,RANDOM 78 mg/dL (70-110); SODIUM SERUM 140 mmol/L (136-145); UREA NITROGEN, BLOOD 7 mg/dL (7-18)
[2025-01-12 15:17] LABS: TROPONIN I-HIGH SENSITIVITY 18 ng/L (<76)
[2025-01-12] MEDS: IPRATROPIUM BROMIDE 0.5 MG/2.5 ML NEB SOLUTION NEB ONE ×2 (16:01→18:15)
[2025-01-12 16:02] VITALS: PULSE 62; RESP 20; O2SAT 93
[2025-01-12] MEDS: ALBUTEROL SULFATE 2.5 MG/0.5 ML NEB SOLUTION NEB ONE ×2 (16:02→18:15)
[2025-01-12 16:11] VITALS: PULSE 64; RESP 20; O2SAT 100
[2025-01-12] MEDS ORDERED: BISACODYL 10 MG RECTAL RECTAL SUPPOSITORY PR PRN (23:15)
[2025-01-12] MEDS ORDERED: ONDANSETRON HCL 4 MG/2 ML VIAL IVP PRN (23:15)
[2025-01-12] MEDS ORDERED: ZOLPIDEM TARTRATE 5 MG TABLET PO PRN (23:15)
[2025-01-12] MEDS ORDERED: MORPHINE SULFATE 2 MG/ML SYRINGE IVP PRN (23:15)
[2025-01-12] MEDS ORDERED: IPRATROPIUM BROMIDE 0.5 MG/2.5 ML NEB SOLUTION NEB PRN (23:15)
[2025-01-12] MEDS ORDERED: MAGNESIUM HYDROXIDE SUSPENSION 30 ML UDCUP PO PRN (23:15)
[2025-01-12] MEDS ORDERED: ALBUTEROL SULFATE 2.5 MG/0.5 ML NEB SOLUTION NEB PRN (23:15)
[2025-01-13] VITALS (15 sets, daily range): BP systolic 111–133; BP diastolic 68–80; PULSE 68–117; RESP 18–20; TEMP 97.5–98.2; O2SAT 89–99
[2025-01-13] MEDS: HEPARIN SODIUM,PORCINE 5,000 UNITS/ML VIAL SQ SCH (01:07)
[2025-01-13] MEDS: IPRATROPIUM BROMIDE 0.5 MG/2.5 ML NEB SOLUTION NEB SCH (02:49)
[2025-01-13] MEDS: ALBUTEROL SULFATE 2.5 MG/0.5 ML NEB SOLUTION NEB SCH (02:49)
[2025-01-13 03:16] LABS: GLUCOMETER DEV NAME(LOC) 6N.2C; GLUCOSE,POINT OF CARE 95 MG/DL (70-110)
[2025-01-13] MEDS ORDERED: MAGNESIUM HYDROXIDE SUSPENSION 30 ML UDCUP PO PRN (04:30)
[2025-01-13] MEDS ORDERED: MISC MED-CONVERTED FROM AMBULATORY (Naloxone HCl (Narcan) 1 SPRAY) NASAL PRN (04:30)
[2025-01-13] MEDS ORDERED: AMOX200S10 PO (05:03)
[2025-01-13] MEDS ORDERED: BISA-72 PO (05:21)
[2025-01-13] MEDS ORDERED: [UNRECOGNIZED DRUG - CODE] TP (05:27)
[2025-01-13] MEDS ORDERED: CAPS42.514 TP (05:27)
[2025-01-13] MEDS ORDERED: CYAN100084 PO (05:33)
[2025-01-13] MEDS ORDERED: DOXY-354 PO (05:35)
[2025-01-13] MEDS ORDERED: FLUT1BLS10 IH (05:36)
[2025-01-13] MEDS ORDERED: GABA-1181 PO (05:37)
[2025-01-13] MEDS ORDERED: IPRA3AMP24 NEB (05:39)
[2025-01-13] MEDS ORDERED: LEVO750T68 PO (05:40)
[2025-01-13] MEDS ORDERED: MAGN296S94 PO (05:42)
[2025-01-13] MEDS ORDERED: MEPO100V SQ (05:44)
[2025-01-13] MEDS: LEVOTHYROXINE SODIUM 125 MCG TABLET PO SCH (06:28)
[2025-01-13 06:56] LABS: GLUCOMETER DEV NAME(LOC) 6N.1C; GLUCOSE,POINT OF CARE 122 MG/DL (70-110)
[2025-01-13] MEDS: APIXABAN 5 MG TABLET PO SCH (08:22)
[2025-01-13] MEDS: ROSUVASTATIN CALCIUM 10 MG TABLET PO SCH (08:23)
[2025-01-13] MEDS: GABAPENTIN 400 MG CAPSULE PO SCH (08:23)
[2025-01-13] MEDS: PANTOPRAZOLE SODIUM 40 MG DR TABLET PO SCH ×2 (08:23→09:00)
[2025-01-13] MEDS: EMPAGLIFLOZIN 25 MG TABLET PO SCH (08:23)
[2025-01-13] MEDS ORDERED: MISC MED-CONVERTED FROM AMBULATORY (Lidocaine 1 PATCH) TP SCH (09:00)
[2025-01-13] MEDS ORDERED: CHOLECALCIFEROL (VIT D3) 2,000 UNITS [50 MCG] TABLET PO SCH (09:00)
[2025-01-13 12:35] LABS: GLUCOMETER DEV NAME(LOC) 6S.2; GLUCOSE,POINT OF CARE 169 MG/DL (70-110)
[2025-01-13] MEDS ORDERED: SODIUM CHLORIDE 0.9% 100 ML ONE (14:49)
[2025-01-13] MEDS ORDERED: 0.9% SODIUM CHLORIDE 10 ML SYRINGE IVP ONE (14:49)
[2025-01-13] MEDS ORDERED: IOHEXOL 350 MG/ML 100 ML VIAL ONE (14:49)
[2025-01-13] MEDS: LATANOPROST 0.005% 2.5 ML OPHTHALMIC SOLUTION OU SCH (21:02)
[2025-01-13] MEDS: INSULIN GLARGINE,HUM.REC.ANLOG 100 UNITS/ML SQ SCH (21:03)
[2025-01-14] VITALS (10 sets, daily range): BP systolic 125–127; BP diastolic 75–76; PULSE 85–106; RESP 18–20; TEMP 97.3–97.9; O2SAT 82–100
[2025-01-14 07:21] LABS: GLUCOMETER DEV NAME(LOC) 6S.2; GLUCOSE,POINT OF CARE 236 MG/DL (70-110)
[2025-01-14 17:46] LABS: GLUCOMETER DEV NAME(LOC) 6N.1C; GLUCOSE,POINT OF CARE 217 MG/DL (70-110)
== END 2025-01-14 19:25 | DRG 189 ==
LOC: EMS 13:45 → EDH 17:23 → 6N 21:18
PROVIDERS: ADMIT Hospitalist; ATTEND Hospitalist
DX: J96.21 Acute and chronic respiratory failure with hypoxia (principal); J44.1 Chronic obstructive pulmonary disease with (acute) exacerbation; J45.901 Unspecified asthma with (acute) exacerbation; E11.9 Type 2 diabetes mellitus without complications; E03.9 Hypothyroidism, unspecified; I10 Essential (primary) hypertension; F10.20 Alcohol dependence, uncomplicated; E78.00 Pure hypercholesterolemia, unspecified; Z88.6 Allergy status to analgesic agent; Z79.01 Long term (current) use of anticoagulants; Z86.711 Personal history of pulmonary embolism; Z99.81 Dependence on supplemental oxygen; Z79.4 Long term (current) use of insulin; Z79.899 Other long term (current) drug therapy; Z91.013 Allergy to seafood
CPT/HCPCS: 71045; 71275; 80048; 82962; 83880; 84484; 85025; 93005; 94640; 94760; 99285; J1644; J1815; J2919; J7050; 36415-L1; 36415-TC; J7613

== ENCOUNTER 2025-01-27 21:29 | Inpatient (IN) | payer OTHER ==
[~2025-01-27] VITALS: Ht 170.2 cm; Wt 139.7 kg
[~2025-01-27 21:29] MED LIST changes: +BISA-72 PO; -CHOL200059 PO; +CYAN100084 PO; +FLUT1BLS10 IH; +GABA-1181 PO; -GABA-1201 PO; +IPRA3AMP24 NEB; -MAGN-169 PO; +MEPO100V SQ; -NALO4SPR NASAL; -PANT-31 PO; +[UNRECOGNIZED DRUG - CODE] TP
[2025-01-27 23:50] LABS: COVID AG,FIA SOURCE NASAL SWAB
[2025-01-27 23:59] LABS: INFLUENZA TYPE A NEGATIVE FOR TYPE A (NEGATIVE); INFLUENZA TYPE B NEGATIVE FOR TYPE B (NEGATIVE); SARS-COV2 (COVID) ANTIGEN,FIA Negative (Negative)
[2025-01-28 00:22] LABS: PLATELET COUNT (AUTO) 357 K/uL (150-450); RED BLOOD CELL COUNT(AUTO) 5.72 MIL/uL (4.50-5.90); RED CELL DISTRIBUTION WIDTH 17.6 % (11.5-14.5); WHITE BLOOD COUNT (AUTO) 9.1 K/uL (4.5-11.0)
[2025-01-28 00:29] LABS: CALCIUM, TOTAL 8.3 mg/dL (8.8-10.5); CREATININE 0.72 mg/dL (0.60-1.30); GLOMERULAR FILTR. RATE CALC > 60 mL/min (>60); GLUCOSE,RANDOM 84 mg/dL (70-110); SODIUM SERUM 140 mmol/L (136-145); UREA NITROGEN, BLOOD 11 mg/dL (7-18)
[2025-01-28 00:34] LABS: ASPARTATE AMINOTRANSFERASE 26 U/L (15-37); CREATINE KINASE, TOTAL ONLY 88 U/L (39-308); TOTAL PROTEIN, SERUM 6.9 g/dL (6.4-8.2)
[2025-01-28 00:39] LABS: TROPONIN I-HIGH SENSITIVITY 15 ng/L (<76)
[2025-01-28] MEDS: IPRATROPIUM BROMIDE 0.5 MG/2.5 ML NEB SOLUTION NEB ONE (01:17)
[2025-01-28] MEDS: ALBUTEROL SULFATE 2.5 MG/0.5 ML 5 ML NEB SOLUTION NEB ONE (01:17)
[2025-01-28 01:25] VITALS: PULSE 83; RESP 18; O2SAT 83; O2SAT 90
[2025-01-28 02:25] VITALS: PULSE 88; RESP 18; O2SAT 96
[2025-01-28] MEDS ORDERED: ALBUTEROL SULFATE 2.5 MG/0.5 ML NEB SOLUTION NEB PRN (05:45)
[2025-01-28] MEDS ORDERED: DEXTROSE 50%-WATER 25 GM/50 ML SYRINGE IVP PRN (05:45)
[2025-01-28] MEDS ORDERED: ZOLPIDEM TARTRATE 5 MG TABLET PO PRN (05:45)
[2025-01-28] MEDS ORDERED: MAGNESIUM HYDROXIDE SUSPENSION 30 ML UDCUP PO PRN (05:45)
[2025-01-28] MEDS ORDERED: ONDANSETRON HCL 4 MG/2 ML VIAL IVP PRN (05:45)
[2025-01-28 08:31] VITALS: BP 90/62; PULSE 99; RESP 19; TEMP 97.3; O2SAT 91
[2025-01-28] MEDS: GABAPENTIN 300 MG CAPSULE PO SCH (09:31)
[2025-01-28] MEDS: APIXABAN 5 MG TABLET PO SCH (09:31)
[2025-01-28] MEDS: DOCUSATE SODIUM 100 MG CAPSULE PO SCH (09:31)
[2025-01-28] MEDS: FAMOTIDINE 20 MG TABLET PO SCH (09:31)
[2025-01-28 11:15] VITALS: BP 100/67; PULSE 99; RESP 19; TEMP 97.5; O2SAT 90
[2025-01-28] MEDS: INSULIN LISPRO 100 UNITS/ML SQ PRN (12:13)
[2025-01-28 16:10] VITALS: BP 120/81; PULSE 103; RESP 20; TEMP 97.5; O2SAT 94
[2025-01-28 19:43] VITALS: BP 122/94; PULSE 105; RESP 19; TEMP 97.5; O2SAT 94
[2025-01-29 00:51] VITALS: BP 119/66; PULSE 90; RESP 17; TEMP 97.7; O2SAT 94
[2025-01-29 03:07] LABS: HEPATITIS C AB (EIA) Reactive (Non Reactive)
[2025-01-29 04:24] VITALS: BP 126/75; PULSE 90; RESP 17; TEMP 97.3; O2SAT 93
[2025-01-29 07:05] LABS: CALCIUM, TOTAL 8.6 mg/dL (8.8-10.5); CREATININE 0.69 mg/dL (0.60-1.30); GLOMERULAR FILTR. RATE CALC > 60 mL/min (>60); GLUCOSE,RANDOM 179 mg/dL (70-110); SODIUM SERUM 138 mmol/L (136-145); UREA NITROGEN, BLOOD 12 mg/dL (7-18)
[2025-01-29 07:08] LABS: PLATELET COUNT (AUTO) 337 K/uL (150-450); RED BLOOD CELL COUNT(AUTO) 5.29 MIL/uL (4.50-5.90); RED CELL DISTRIBUTION WIDTH 17.4 % (11.5-14.5); WHITE BLOOD COUNT (AUTO) 23.0 K/uL (4.5-11.0)
[2025-01-29 07:19] LABS: RBC MORPHOLOGY COMMENT ABNORMAL RBC MORPH
[2025-01-29 09:10] VITALS: BP 122/77; PULSE 78; RESP 17; TEMP 97.5; O2SAT 96
[2025-01-29 12:02] VITALS: BP 124/76; PULSE 80; RESP 18; TEMP 97.8; O2SAT 95
[2025-01-29 16:06] VITALS: BP 135/81; PULSE 72; RESP 17; TEMP 97.5; O2SAT 98
[2025-01-29] MEDS: ETHYL ALCOHOL 62% ANTISEPTIC NASAL SANITIZER 0.6 ML AMPUL NASAL ONE (16:51)
[2025-01-29 19:35] LABS: APPEARANCE,URINE CLEAR (CLEAR); GLUCOSE, URINE (UA) 300-500 mg/dL (NEGATIVE); LEUKOCYTE ESTERASE ,URINE NEGATIVE (NEGATIVE); NITRATE,URINE NEGATIVE (NEGATIVE); OCCULT BLOOD,URINE NEGATIVE (NEGATIVE); SPECIFIC GRAVITIY, URINE 1.007 (1.003-1.030)
[2025-01-29 19:55] LABS: SQUAMOUS EPITHELIAL CELL,UR Rare /LPF (None Seen)
[2025-01-29 20:09] VITALS: BP 141/88; PULSE 73; RESP 18; TEMP 98.1; O2SAT 93
[2025-01-29] MEDS ORDERED: ETHYL ALCOHOL 62% ANTISEPTIC NASAL SANITIZER 0.6 ML AMPUL NASAL SCH (21:00)
[2025-01-30 00:02] VITALS: BP 128/79; PULSE 72; RESP 18; TEMP 97.5; O2SAT 95
[2025-01-30 04:43] VITALS: BP 126/87; PULSE 56; RESP 18; TEMP 97.5; O2SAT 98
[2025-01-30 06:59] LABS: PLATELET COUNT (AUTO) 316 K/uL (150-450); RED BLOOD CELL COUNT(AUTO) 5.38 MIL/uL (4.50-5.90); RED CELL DISTRIBUTION WIDTH 17.5 % (11.5-14.5); WHITE BLOOD COUNT (AUTO) 21.3 K/uL (4.5-11.0)
[2025-01-30 07:13] LABS: CALCIUM, TOTAL 8.4 mg/dL (8.8-10.5); CREATININE 0.49 mg/dL (0.60-1.30); GLOMERULAR FILTR. RATE CALC > 60 mL/min (>60); GLUCOSE,RANDOM 177 mg/dL (70-110); SODIUM SERUM 139 mmol/L (136-145); UREA NITROGEN, BLOOD 13 mg/dL (7-18)
[2025-01-30] MEDS: ETHYL ALCOHOL 62% ANTISEPTIC NASAL SANITIZER 0.6 ML AMPUL NASAL SCH (08:04)
[2025-01-30 08:47] VITALS: BP 133/91; PULSE 61; RESP 18; TEMP 97.5; O2SAT 100
[2025-01-30 10:43] LABS: GLUCOMETER DEV NAME(LOC) 5N.1D; GLUCOSE,POINT OF CARE 225 MG/DL (70-110)
[2025-01-30 10:43] LABS: GLUCOMETER DEV NAME(LOC) 5N.1D; GLUCOSE,POINT OF CARE 259 MG/DL (70-110)
[2025-01-30 10:43] LABS: GLUCOMETER DEV NAME(LOC) 5N.1D; GLUCOSE,POINT OF CARE 196 MG/DL (70-110)
[2025-01-30 10:43] LABS: GLUCOMETER DEV NAME(LOC) 5N.1D; GLUCOSE,POINT OF CARE 191 MG/DL (70-110)
[2025-01-30 10:43] LABS: GLUCOMETER DEV NAME(LOC) 5N.1D; GLUCOSE,POINT OF CARE 187 MG/DL (70-110)
[2025-01-30 10:46] LABS: GLUCOMETER DEV NAME(LOC) 5S.1D; GLUCOSE,POINT OF CARE 272 MG/DL (70-110)
[2025-01-30 10:46] LABS: GLUCOMETER DEV NAME(LOC) 5S.1D; GLUCOSE,POINT OF CARE 190 MG/DL (70-110)
[2025-01-30 10:46] LABS: GLUCOMETER DEV NAME(LOC) 5S.1D; GLUCOSE,POINT OF CARE 180 MG/DL (70-110)
[2025-01-30 12:02] VITALS: BP 137/82; PULSE 60; RESP 19; TEMP 97.5; O2SAT 100
[2025-01-30 15:57] VITALS: BP 132/84; PULSE 65; RESP 18; TEMP 97.7; O2SAT 97
[2025-01-30 17:26] LABS: GLUCOMETER DEV NAME(LOC) 5S.2D; GLUCOSE,POINT OF CARE 269 MG/DL (70-110)
[2025-01-30 17:26] LABS: GLUCOMETER DEV NAME(LOC) 5S.1D; GLUCOSE,POINT OF CARE 243 MG/DL (70-110)
[2025-01-30 19:30] VITALS: BP 129/82; PULSE 63; RESP 19; TEMP 97.9; O2SAT 96
[2025-02-01 10:07] LABS: HEPATITIS C RT-PCR,QNT HCV Not Detected IU/mL
== END 2025-01-30 20:15 | DRG 189 ==
LOC: EMS 21:37 → EDH 01-28 05:45 → 5S 01-28 09:25
PROVIDERS: ADMIT Internal Medicine; ATTEND Internal Medicine
DX: J96.21 Acute and chronic respiratory failure with hypoxia (principal); J45.901 Unspecified asthma with (acute) exacerbation; J44.1 Chronic obstructive pulmonary disease with (acute) exacerbation; Z68.42 Body mass index [BMI] 45.0-49.9, adult; E11.9 Type 2 diabetes mellitus without complications; Z20.822 Contact with and (suspected) exposure to COVID-19; E66.01 Morbid (severe) obesity due to excess calories; Z86.711 Personal history of pulmonary embolism; E78.00 Pure hypercholesterolemia, unspecified; E03.9 Hypothyroidism, unspecified; I10 Essential (primary) hypertension; Z88.6 Allergy status to analgesic agent; Z99.81 Dependence on supplemental oxygen
CPT/HCPCS: 71045; 80048; 80076; 81001; 81003; 82550; 82962; 83880; 84484; 85025; 86803; 87081; 87522; 87804; 93005; 94640; 94644; 99285; J2919; 36415-L1; 36415-TC

== ENCOUNTER 2025-03-22 15:24 | Inpatient (IN) | payer OTHER ==
[~2025-03-22] VITALS: Ht 170.2 cm; Wt 137.8 kg
[~2025-03-22 15:24] MED LIST changes: -INSLAN SQ; -ROSU10TA72 PO; +ROSU10TA98 PO
[2025-03-22 16:15] LABS: PLATELET COUNT (AUTO) 344 K/uL (150-450); RED BLOOD CELL COUNT(AUTO) 5.34 MIL/uL (4.50-5.90); RED CELL DISTRIBUTION WIDTH 17.0 % (11.5-14.5); WHITE BLOOD COUNT (AUTO) 13.5 K/uL (4.5-11.0)
[2025-03-22 16:19] LABS: CALCIUM, TOTAL 7.9 mg/dL (8.8-10.5); CREATININE 0.72 mg/dL (0.60-1.30); GLOMERULAR FILTR. RATE CALC > 60 mL/min (>60); GLUCOSE,RANDOM 96 mg/dL (70-110); SODIUM SERUM 137 mmol/L (136-145); UREA NITROGEN, BLOOD 13 mg/dL (7-18)
[2025-03-22 16:25] LABS: ASPARTATE AMINOTRANSFERASE 22.0 U/L (15-37); TOTAL PROTEIN, SERUM 6.8 g/dL (6.4-8.2)
[2025-03-22 16:27] LABS: TROPONIN I-HIGH SENSITIVITY 8 ng/L (<76)
[2025-03-22 16:32] LABS: COVID AG,FIA SOURCE NASAL SWAB
[2025-03-22] MEDS: ALBUTEROL SULFATE 2.5 MG/0.5 ML NEB SOLUTION NEB ONE (16:35)
[2025-03-22] MEDS: IPRATROPIUM BROMIDE 0.5 MG/2.5 ML NEB SOLUTION NEB ONE (16:35)
[2025-03-22] MEDS: CefTRIAXone 1 GM/DEXTROSE 50 ML IV ONE (16:41)
[2025-03-22 16:45] VITALS: PULSE 77; RESP 16; O2SAT 99
[2025-03-22 16:46] VITALS: PULSE 77; RESP 16; O2SAT 100
[2025-03-22 16:57] LABS: SARS-COV2 (COVID) ANTIGEN,FIA Negative (Negative)
[2025-03-22 16:58] LABS: INFLUENZA TYPE A NEGATIVE FOR TYPE A (NEGATIVE); INFLUENZA TYPE B NEGATIVE FOR TYPE B (NEGATIVE)
[2025-03-22] MEDS: AZITHROMYCIN 500 MG/NS 250 ML IV ONE (17:29)
[2025-03-22] MEDS ORDERED: MORPHINE SULFATE 2 MG/ML SYRINGE IVP PRN (21:00)
[2025-03-22] MEDS ORDERED: ZOLPIDEM TARTRATE 5 MG TABLET PO PRN (21:00)
[2025-03-22] MEDS: DOCUSATE SODIUM 100 MG CAPSULE PO SCH (21:00)
[2025-03-22] MEDS: LATANOPROST 0.005% 2.5 ML OPHTHALMIC SOLUTION OU SCH (21:00)
[2025-03-22] MEDS ORDERED: MORPHINE SULFATE 4 MG/ML SYRINGE IVP PRN (21:00)
[2025-03-22] MEDS ORDERED: ALBUTEROL SULFATE 2.5 MG/0.5 ML NEB SOLUTION NEB PRN ×2 (21:00)
[2025-03-22] MEDS ORDERED: ONDANSETRON HCL 4 MG/2 ML VIAL IVP PRN (21:00)
[2025-03-22] MEDS ORDERED: BISACODYL 10 MG RECTAL RECTAL SUPPOSITORY PR PRN ×2 (21:00)
[2025-03-22] MEDS ORDERED: IPRATROPIUM BROMIDE 0.5 MG/2.5 ML NEB SOLUTION NEB PRN ×4 (21:00→21:30)
[2025-03-22] MEDS ORDERED: MAGNESIUM HYDROXIDE SUSPENSION 30 ML UDCUP PO PRN ×2 (21:00)
[2025-03-22] MEDS ORDERED: LEVO100 PO (21:21)
[2025-03-22] MEDS ORDERED: PREG150C47 PO (21:21)
[2025-03-22] MEDS: GABAPENTIN 300 MG CAPSULE PO SCH (22:14)
[2025-03-22] MEDS: APIXABAN 5 MG TABLET PO SCH (22:14)
[2025-03-22 22:32] VITALS: BP 141/84; PULSE 79; RESP 16; TEMP 97.8; O2SAT 95
[2025-03-22] MEDS: IPRATROPIUM BROMIDE 0.5 MG/2.5 ML NEB SOLUTION NEB SCH (23:00)
[2025-03-23] VITALS (12 sets, daily range): BP systolic 112–127; BP diastolic 55–88; PULSE 71–100; RESP 16–18; TEMP 97.5–97.9; O2SAT 95–100
[2025-03-23] MEDS ORDERED: LEVOTHYROXINE SODIUM 100 MCG TABLET PO SCH (06:30)
[2025-03-23] MEDS: LEVOTHYROXINE SODIUM 125 MCG TABLET PO SCH (06:59)
[2025-03-23] MEDS: ALBUTEROL SULFATE 2.5 MG/0.5 ML NEB SOLUTION NEB SCH (07:05)
[2025-03-23] MEDS: EMPAGLIFLOZIN 25 MG TABLET PO SCH (08:27)
[2025-03-23] MEDS: BISACODYL 5 MG EC TABLET PO SCH (08:27)
[2025-03-23] MEDS: PANTOPRAZOLE SODIUM 40 MG DR TABLET PO SCH (08:27)
[2025-03-23] MEDS: ROSUVASTATIN CALCIUM 10 MG TABLET PO SCH (08:27)
[2025-03-23] MEDS ORDERED: PANTOPRAZOLE SODIUM 40 MG DR TABLET PO SCH (09:00)
[2025-03-23] MEDS ORDERED: MISC MED-CONVERTED FROM AMBULATORY (Lidocaine 1 PATCH) TP SCH (09:00)
[2025-03-23] MEDS ORDERED: SODIUM CHLORIDE 0.9% 250 ML IV ONE (16:03)
[2025-03-23] MEDS: CefTRIAXone 1 GM/DEXTROSE 50 ML IV SCH (17:57)
[2025-03-24] VITALS (12 sets, daily range): BP systolic 109–128; BP diastolic 64–82; PULSE 71–102; RESP 16–19; TEMP 97.5–98.1; O2SAT 95–99
[2025-03-24 00:22] LABS: GLUCOMETER DEV NAME(LOC) 5N.2C; GLUCOSE,POINT OF CARE 343 MG/DL (70-110)
[2025-03-24] MEDS: LEVOTHYROXINE SODIUM 100 MCG TABLET PO SCH (05:50)
[2025-03-24 06:14] LABS: PLATELET COUNT (AUTO) 375 K/uL (150-450); RED BLOOD CELL COUNT(AUTO) 5.30 MIL/uL (4.50-5.90); RED CELL DISTRIBUTION WIDTH 16.8 % (11.5-14.5); WHITE BLOOD COUNT (AUTO) 25.1 K/uL (4.5-11.0)
[2025-03-24 06:36] LABS: CALCIUM, TOTAL 8.8 mg/dL (8.8-10.5); CREATININE 1.05 mg/dL (0.60-1.30); GLOMERULAR FILTR. RATE CALC > 60 mL/min (>60); GLUCOSE,RANDOM 252 mg/dL (70-110); SODIUM SERUM 139 mmol/L (136-145); UREA NITROGEN, BLOOD 18 mg/dL (7-18)
[2025-03-24] MEDS ORDERED: AZIT-167 PO (12:23)
[2025-03-25] MEDS ORDERED: AZITHROMYCIN 500 MG TABLET PO SCH (09:00)
[2025-03-25] MEDS ORDERED: PREGABALIN 50 MG CAPSULE PO SCH (09:00)
== END 2025-03-24 16:50 | DRG 189 ==
LOC: EMS 15:24 → EDH 20:56 → 5S 21:50 → 5N 03-23 06:25
PROVIDERS: ADMIT Hospitalist; ATTEND Hospitalist
DX: J96.20 Acute and chronic respiratory failure, unspecified whether with hypoxia or hypercapnia (principal); J18.9 Pneumonia, unspecified organism; J44.0 Chronic obstructive pulmonary disease with (acute) lower respiratory infection; I10 Essential (primary) hypertension; E03.9 Hypothyroidism, unspecified; E11.40 Type 2 diabetes mellitus with diabetic neuropathy, unspecified; E66.01 Morbid (severe) obesity due to excess calories; F10.20 Alcohol dependence, uncomplicated; J44.1 Chronic obstructive pulmonary disease with (acute) exacerbation; Z68.42 Body mass index [BMI] 45.0-49.9, adult; K21.9 Gastro-esophageal reflux disease without esophagitis; G47.33 Obstructive sleep apnea (adult) (pediatric); G89.29 Other chronic pain; H40.9 Unspecified glaucoma; Z20.822 Contact with and (suspected) exposure to COVID-19; E78.00 Pure hypercholesterolemia, unspecified; Z88.6 Allergy status to analgesic agent; Z86.711 Personal history of pulmonary embolism
CPT/HCPCS: 71045; 80048; 80076; 82962; 83880; 84484; 85025; 87081; 87804; 93005; 94640; 99285; J0456; J0696; J2919; J7050; 36415-L1; 36415-TC; J7613